=== PATIENT | male | born 1940 | race Caucasian/White ===

== ENCOUNTER → 2016-09-12 | Outpatient (CLI) | payer OTHER ==
[2016-09-12 18:19] LABS: ALT/SGPT 37 U/L (12-78); BLOOD UREA NITROGEN 25 mg/dl (7-18); BUN/CREATININE RATIO 19.5 (10-20); CALCIUM 8.8 mg/dl (8.5-10.1); CARBON DIOXIDE 28 mmol/L (21-32); CHLORIDE 105 mmol/L (98-107); GLUCOSE 96 mg/dl (70-99); POTASSIUM 4.5 mmol/L (3.5-5.1); SODIUM 139 mmol/L (136-145)
[2016-09-12 18:30] LABS: ALB/GLOB RATIO 1.1 (0.9-2); ALKALINE PHOSPHATASE 45 U/L (45-117); AST/SGOT 21 U/L (15-37)
[2016-09-12 18:46] LABS: MEAN CELL VOLUME 100.5 fL (80-100); MEAN CORPUSCULAR HEMOGLOBIN 33.3 pg (25-34); MEAN CORPUSCULAR HGB CONC 33.2 g/dl (32-36); MEAN PLATELET VOLUME 12.4 fL (7.4-10.4); PLATELET COUNT 107 K/uL (130-400); RED BLOOD COUNT 3.78 M/uL (4.7-6.1); WHITE BLOOD COUNT 5.99 K/uL (4.8-10.8)
[2016-09-12 18:47] LABS: COMPLETE YES; EOS % 0.2 %; IG% 0.2 %; LYMPH % 23.4 %; MONO % 37.4 %; NEUT % 38.8 %; PLT ESTIMATE DECREASED
--- NOTE | 2016-09-25 12:09 | CODING QUERY MEDICAL NECESSITY ---
SUPPORTING DIAGNOSIS NEEDED Niranjan DAMION, A supporting diagnosis is required for the test/procedure performed on this patient in order for us to be reimbursed by the patient's insurance. Please provide a supporting diagnosis for the following test/procedure listed below next to the test name along with your signature. *If there is no additional diagnosis for this patient that would support the following test/procedure please document that below next to the test/procedure. Test(s)/Procedure(s) that require a supporting diagnosis: * ([id number]) VITAMIN D ASSAY DIAGNOSIS: DATE OF SERVICE: 09/12/16 Provider Signature: Date: Thank you Flako Sousa [facility] Information Management Once completed, please kindly fax back to [phone] For questions please call [phone]
== END | disposition home or self-care (01) ==
LOC: C.LABPBG 15:01
PROVIDERS: ATTEND Physician Assistant
DX: Z00.00 Encounter for general adult medical examination without abnormal findings (principal); Z13.21 Encounter for screening for nutritional disorder; R42 Dizziness and giddiness

== ENCOUNTER → 2016-09-12 | Outpatient (CLI) | payer OTHER ==
[2016-09-12 18:15] LABS: URINE APPEARANCE CLEAR (CLEAR); URINE BILIRUBIN NEG (NEG); URINE COLOR YELLOW; URINE NITRITE NEG (NEG); URINE PH 5.5 (4.5-7.5); URINE SPECIFIC GRAVITY 1.019 (1.000-1.030); UROBILINOGEN NEG (NEG); ZZUR CULT IF INDIC CLEAN CATCH NO
[2016-09-12 18:21] LABS: MANUAL MICROSCOPIC REQUIRED? NO; REVIEW REQ? NO
== END | disposition home or self-care (01) ==
LOC: C.LABSPEC 14:41
PROVIDERS: ATTEND Physician Assistant
DX: R42 Dizziness and giddiness (principal)

== ENCOUNTER 2016-09-28 12:29 | Emergency (ER) | payer OTHER ==
[~2016-09-28] VITALS: Ht 172.7 cm; Wt 46.4 kg
[2016-09-28 12:58] VITALS: TEMP 36.5; Ht 172.7 cm; Wt 46.4 kg
[2016-09-28 13:11] VITALS: O2SAT 93
[2016-09-28] MEDS ORDERED: SODIUM CHLORIDE 0.9% 1000ML 500 ML IV STA (13:13)
[2016-09-28] MEDS ORDERED: SODIUM CHLORIDE 0.9% 1000ML 1,000 ML IV STA (13:13)
--- NOTE | 2016-09-28 13:17 | EMERGENCY ROOM VISIT NOTE ---
History Report prepared by Celi: Susy Gooden Under the Supervision of: Dr. Jan Hardy M.D. First contact with patient: 13:05 Chief Complaint: OVERDOSE (ACCIDENTAL) Stated Complaint: VERTIGO/ MED INTAKE NOT PRESCIBED Nursing Triage Summary: Per EMS patient has been having an increase in confusion over the past few weeks. This morning patient feel two different times when getting up from sitting. Patient denies any LOC with falls. Denies hitting his heat. Patient accidently took his 's medication this morning at around 1000. Patient took Paxil 20mg, Iron Sulfate (unknown dose) and Metformin 1000mg. Patient c/o dizziness when standing for EMS. EMS also reported patient became orthostatic when standing. Patient BSG for EMS was 122. Patient denies any pain or dizziness at this time. History of Present Illness The patient is a 76 year old male who presents to the Emergency Room with complaints of persistent dizziness that began prior to arrival. Per nursing notes, the patient accidentally took 1000 mg of Metformin, 20 mg of Paxil, and an iron tablet. Nursing notes report that the patient was found to have a blood glucose of 172 mg/dL and has been complaining of dizziness. The patient' s states that the dizziness has been ongoing prior to the medication intake. She notes that the patient fell twice this morning. The patient denies any head injury or other injury due to the fall. He states that his dizziness is worsened with standing. The patient denies being on any anti- coagulants. The patient denies any fever, chest pain, shortness of breath, vomiting, or diarrhea. Source of History: patient Onset: prior to arrival Position: other (global) Quality: other (dizziness) Timing: other (persistent) Modifying Factors (Worsening): other (standing) Associated Symptoms: No fevers, No chest pain, No SOB, No vomiting, No diarrhea Review of Systems See HPI for pertinent positives & negatives. A total of 10 systems reviewed and were otherwise negative. Past Medical & Surgical No active medical problems stated Family History Heart disease Lung disease Social History Smoking Status: Never Smoker Smokeless Tobacco Use: Yes Alcohol Use: none Marital Status: Housing Status: lives with family Occupation Status: retired Current/Historical Medications No Active Prescriptions or Reported Meds Allergies Coded Allergies: No Known Allergies (Unverified , 09/28/16) Physical Exam Vital Signs Date Time Temp Pulse Resp B/P (MAP) Pulse Ox O2 Delivery O2 Flow Rate FiO2 09/28/16 14:49 71 117/73 98 Room Air 09/28/16 13:40 72 20 118/71 72 114/70 87 127/92 09/28/16 13:12 78 20 120/71 99 Room Air 09/28/16 13:11 93 Room Air 09/28/16 12:58 36.5 76 119/71 98 Room Air 09/28/16 12:51 72 Physical Exam GENERAL: Patient is in no acute distress. HEENT: No acute trauma, normocephalic atraumatic, mucous membranes dry, no nasal congestion, no scleral icterus. NECK: No stridor, no adenopathy, no meningismus, trachea is midline. LUNGS: Clear to auscultation bilaterally, no wheeze, no rhonchi, breath sounds equal. HEART: Without murmurs gallops or rubs, regular rate and rhythm. ABDOMEN: Soft, nontender, bowel sounds positive, no hernias, no peritonitis. EXTREMITIES: No cyanosis or edema, full range of motion of all the joints without pain or difficulty, no signs for acute trauma. NEUROLOGIC: Oriented x 3, no acute motor or sensory deficits, no focal weakness. SKIN: No rash, no jaundice, no diaphoresis. Medical Decision & Procedures ER Provider Diagnostic Interpretation: Orthostatic vital signs are currently negative. Radiology results as stated below per my review and radiologist interpretation: CHEST ONE VIEW PORTABLE CLINICAL HISTORY: Altered mental status. Weakness. COMPARISON STUDY: None available at time of interpretation due to PACS downtime. FINDINGS: Note is made of asymmetric right apical opacity. There is no pneumothorax or pleural effusion. There is no evidence of pulmonary edema. Cardiomediastinal silhouette is normal. Apparent retrocardiac opacity is probably artifactual. IMPRESSION: Asymmetric right apical opacity. This is nonspecific and prior imaging studies are not available for comparison due to PACS downtime. Therefore, this could reflect scarring, pneumonia or neoplastic process. Correlation with prior imaging studies would available, is recommended. In the absence of prior studies, short-term follow-up PA and lateral chest radiographs are recommended in one month. Electronically signed by: Abelardo Cruz M.D. 09/28/2016 2:08 PM Dictated Date/Time: 09/28/2016 2:[address] SCAN OF THE BRAIN WITHOUT IV CONTRAST CLINICAL HISTORY: Weakness. Change in mental status. COMPARISON STUDY: No prior studies are available for comparison at the time of dictation. TECHNIQUE: Unenhanced axial CT scan of the brain is performed from the vertex to the skull base. CT DOSE: 614.27 mGy.cm FINDINGS: Brain parenchyma: There are age-related involutional changes noting mild subcortical and periventricular microangiopathic change. There is no hemorrhage, mass effect, or evidence of acute territorial ischemia by CT criteria. Ceja-white matter is preserved. No extra-axial fluid collection is seen. Ventricles, sulci, cisterns: Prominent secondary to involutional change. Intracranial vasculature: There is atherosclerotic calcification of the cavernous carotid and vertebral arteries. Calvarium: Unremarkable. Sinuses and mastoids: The visualized paranasal sinuses are clear. The mastoid air cells are well pneumatized. Orbits: The bony orbits are grossly intact. IMPRESSION: There is no hemorrhage, mass effect, or evidence of acute territorial ischemia by CT criteria. Electronically signed by: Jan Saucedo M.D. 09/28/2016 2:10 PM Dictated Date/Time: 09/28/2016 2:06 PM Laboratory Results 09/28/16 13:30 Red Blood Count 3.93, Mean Corpuscular Volume 98.2, Mean Corpuscular Hemoglobin 32.6, Mean Corpuscular Hemoglobin Concent 33.2, Mean Platelet Volume 11.6, Neutrophils (%) (Auto) 67.8, Lymphocytes (%) (Auto) 23.9, Monocytes (%) (Auto) 8.0, Eosinophils (%) (Auto) 0.0, Basophils (%) (Auto) 0.1, Neutrophils # (Auto) 6.34, Lymphocytes # (Auto) 2.24, Monocytes # (Auto) 0.75, Eosinophils # (Auto) 0.00, Basophils # (Auto) 0.01 09/28/16 13:30 Test 09/28/16 13:30 09/28/16 14:45 White Blood Count 9.36 K/uL (4.8-10.8) Red Blood Count 3.93 M/uL (4.7-6.1) Hemoglobin 12.8 g/dL (14.0-18.0) Hematocrit 38.6 % (42-52) Mean Corpuscular Volume 98.2 fL (80-100) Mean Corpuscular Hemoglobin 32.6 pg (25-34) Mean Corpuscular Hemoglobin Concent 33.2 g/dl (32-36) Platelet Count 123 K/uL (130-400) Mean Platelet Volume 11.6 fL (7.4-10.4) Neutrophils (%) (Auto) 67.8 % Lymphocytes (%) (Auto) 23.9 % Monocytes (%) (Auto) 8.0 % Eosinophils (%) (Auto) 0.0 % Basophils (%) (Auto) 0.1 % Neutrophils # (Auto) 6.34 K/uL (1.4-6.5) Lymphocytes # (Auto) 2.24 K/uL (1.2-3.4) Monocytes # (Auto) 0.75 K/uL (0.11-0.59) Eosinophils # (Auto) 0.00 K/uL (0-0.5) Basophils # (Auto) 0.01 K/uL (0-0.2) RDW Standard Deviation 47.8 fL (36.4-46.3) RDW Coefficient of Variation 13.2 % (11.5-14.5) Immature Granulocyte % (Auto) 0.2 % Immature Granulocyte # (Auto) 0.02 K/uL (0.00-0.02) Anion Gap 6.0 mmol/L (3-11) Est Creatinine Clear Calc Drug Dose 30.7 ml/min Estimated GFR () 60.6 Estimated GFR (Non- 52.3 BUN/Creatinine Ratio 16.6 (10-20) Calcium Level 8.5 mg/dl (8.5-10.1) Total Bilirubin 0.9 mg/dl (0.2-1) Aspartate Amino Transf (AST/SGOT) 22 U/L (15-37) Alanine Aminotransferase (ALT/SGPT) 27 U/L (12-78) Alkaline Phosphatase 52 U/L (45-117) Total Creatine Kinase 109 U/L (39-308) Troponin I < 0.015 ng/ml (0-0.045) Total Protein 7.5 gm/dl (6.4-8.2) Albumin 4.1 gm/dl (3.4-5.0) Globulin 3.4 gm/dl (2.5-4.0) Albumin/Globulin Ratio 1.2 (0.9-2) Thyroid Stimulating Hormone (TSH) 1.700 uIu/ml (0.300-4.500) Urine Color YELLOW Urine Appearance CLEAR (CLEAR) Urine pH 7.0 (4.5-7.5) Urine Specific [place] 1.013 (1.000-1.030) Urine Protein NEG (NEG) Urine Glucose (UA) NEG (NEG) Urine Ketones NEG (NEG) Urine Occult Blood NEG (NEG) Urine Nitrite NEG (NEG) Urine Bilirubin NEG (NEG) Urine Urobilinogen NEG (NEG) Urine Leukocyte Esterase NEG (NEG) Laboratory results reviewed by me. Medications Administered Medications (Trade) Dose Ordered Sig/Carole Route Start Time Stop Time Status Last Admin Dose Admin Sodium Chloride 500 ml @ 999 mls/hr Q31M STAT IV 09/28/16 13:13 09/28/16 13:43 DC 09/28/16 13:48 999 MLS/HR Sodium Chloride 1,000 ml @ 200 mls/hr Q5H STAT IV 09/28/16 13:13 09/28/16 18:12 09/28/16 14:58 200 MLS/HR Sodium Chloride 500 ml @ 999 mls/hr Q31M STAT IV 09/28/16 14:24 09/28/16 14:54 DC 09/28/16 14:58 999 MLS/HR ECG Indication: toxicologic Rate (beats per minute): 71 Rhythm: normal sinus Findings: no acute ischemic change, no ectopy ED Course 1307: The patient was evaluated in room A9B. A complete history and physical exam was performed. 1313: Ordered Sodium Chloride 1000 ml @ 200 mls/hr IV, Sodium Chloride 500 ml @ 999 mls/hr IV. 1424: Ordered Sodium Chloride 500 ml @ 999 mls/hr IV. Medical Decision The patient is a 76 year old male who presents to the ED with complaints of dizziness. Differential diagnoses considered include Dehydration, medication reaction, anemia, electrolyte imbalance, intracranial bleeding, UTI, infection, anemia, CA, thyroid disorder. There is no leukocytosis or concerning anemia. No significant electrolyte abnormality, kidney failure or hepatitis. The patient appears to be in a euthyroid state. EKG shows a normal sinus rhythm, no acute ischemia. Cardiac enzyme testing times one is not consistent with acute cardiac injury. Chest x- ray shows a finding in the right upper lung. I was able to compare to old films , this finding does not appear to be acute. There is no CHF. The patient was encouraged to follow with his doctor's office for a repeat chest film to ensure stabilization of the findings. Urinalysis does not show infection. Brain CT shows no acute bleed or mass effect. On exam, there are no focal neurologic deficits. The patient is not febrile or toxic. Orthostatic vital signs are negative. The patient received IV saline. He is currently resting comfortable. The patient is being seen by case management for the possibility of rehabilitation. He may benefit from strengthening. At this point, the cause for the dizziness is likely dehydration. The fact that he took the wrong medications today may have been a continuing factor. He does seem back to baseline . There has been ongoing weakness though for some time, as per his , and again, he is being assessed for possible rehabilitation. The case is being assumed by , please see her notes for the final disposition and plan. Medication Reconcilliation Current Medication List: was personally reviewed by me Blood Pressure Screening Patient's blood pressure: Normal blood pressure Blood pressure disposition: Did not require urgent referral Impression Primary Impression: Dizziness Additional Impression: Accidental drug ingestion Scribe Attestation The scribe's documentation has been prepared under my direction and personally reviewed by me in its entirety. I confirm that the note above accurately reflects all work, treatment, procedures, and medical decision making performed by me. Departure Information Dispostion Still a Patient Prescriptions No Active Prescriptions or Reported Meds Referrals David Hernandez D.O. (PCP) Patient Instructions My [facility] Problem Qualifiers
[2016-09-28 13:46] LABS: HEMATOCRIT 38.6 % (42-52); MEAN CELL VOLUME 98.2 fL (80-100); MEAN CORPUSCULAR HEMOGLOBIN 32.6 pg (25-34); MEAN CORPUSCULAR HGB CONC 33.2 g/dl (32-36); MEAN PLATELET VOLUME 11.6 fL (7.4-10.4); PLATELET COUNT 123 K/uL (130-400); RED BLOOD COUNT 3.93 M/uL (4.7-6.1); WHITE BLOOD COUNT 9.36 K/uL (4.8-10.8)
[2016-09-28 14:07] LABS: ALT/SGPT 27 U/L (12-78); BLOOD UREA NITROGEN 22 mg/dl (7-18); BUN/CREATININE RATIO 16.6 (10-20); CALCIUM 8.5 mg/dl (8.5-10.1); CARBON DIOXIDE 27 mmol/L (21-32); CHLORIDE 104 mmol/L (98-107); GLUCOSE 114 mg/dl (70-99); POTASSIUM 4.8 mmol/L (3.5-5.1); SODIUM 137 mmol/L (136-145)
--- NOTE | 2016-09-28 14:10 | DIAGNOSTIC IMAGING REPORT ---
CHEST ONE VIEW PORTABLE CLINICAL HISTORY: Altered mental status. Weakness. COMPARISON STUDY: None available at time of interpretation due to PACS downtime. FINDINGS: Note is made of asymmetric right apical opacity. There is no pneumothorax or pleural effusion. There is no evidence of pulmonary edema. Cardiomediastinal silhouette is normal. Apparent retrocardiac opacity is probably artifactual. IMPRESSION: Asymmetric right apical opacity. This is nonspecific and prior imaging studies are not available for comparison due to PACS downtime. Therefore, this could reflect scarring, pneumonia or neoplastic process. Correlation with prior imaging studies would available, is recommended. In the absence of prior studies, short-term follow-up PA and lateral chest radiographs are recommended in one month. Electronically signed by: Abelardo Cruz M.D. 09/28/2016 2:08 PM Dictated Date/Time: 09/28/2016 2:02 PM
[2016-09-28 14:17] LABS: ALB/GLOB RATIO 1.2 (0.9-2); ALKALINE PHOSPHATASE 52 U/L (45-117); AST/SGOT 22 U/L (15-37)
[2016-09-28] MEDS ORDERED: SODIUM CHLORIDE 0.9% 500ML 500 ML IV STA (14:24)
--- NOTE | 2016-09-28 14:33 | DIAGNOSTIC IMAGING REPORT ---
CT SCAN OF THE BRAIN WITHOUT IV CONTRAST CLINICAL HISTORY: Weakness. Change in mental status. COMPARISON STUDY: No prior studies are available for comparison at the time of dictation. TECHNIQUE: Unenhanced axial CT scan of the brain is performed from the vertex to the skull base. CT DOSE: 614.27 mGy.cm FINDINGS: Brain parenchyma: There are age-related involutional changes noting mild subcortical and periventricular microangiopathic change. There is no hemorrhage, mass effect, or evidence of acute territorial ischemia by CT criteria. Ceja-white matter is preserved. No extra-axial fluid collection is seen. Ventricles, sulci, cisterns: Prominent secondary to involutional change. Intracranial vasculature: There is atherosclerotic calcification of the cavernous carotid and vertebral arteries. Calvarium: Unremarkable. Sinuses and mastoids: The visualized paranasal sinuses are clear. The mastoid air cells are well pneumatized. Orbits: The bony orbits are grossly intact. IMPRESSION: There is no hemorrhage, mass effect, or evidence of acute territorial ischemia by CT criteria. Electronically signed by: Jan Saucedo M.D. 09/28/2016 2:10 PM Dictated Date/Time: 09/28/2016 2:06 PM
[2016-09-28 14:42] LABS: BASO % 0.1 %; BASO ABS # 0.01 K/uL (0-0.2); COMPLETE YES; IG% 0.2 %; LYMPH % 23.9 %; LYMPH ABS # 2.24 K/uL (1.2-3.4); NEUT % 67.8 %
[2016-09-28 15:37] LABS: URINE APPEARANCE CLEAR (CLEAR); URINE BILIRUBIN NEG (NEG); URINE COLOR YELLOW; URINE NITRITE NEG (NEG); URINE SPECIFIC GRAVITY 1.013 (1.000-1.030); UROBILINOGEN NEG (NEG); ZZURINE CULT IF INDIC CATH NO
[2016-09-28 15:40] LABS: MANUAL MICROSCOPIC REQUIRED? NO; REVIEW REQ? NO
[2016-09-28 17:24] VITALS: BP 116/66; PULSE 70; O2SAT 99
== END 2016-09-28 17:25 | disposition home or self-care (01) ==
LOC: EDBD 12:29 → C.EDA 12:31
DX: R42 Dizziness and giddiness (principal); E86.0 Dehydration; T43.221A Poisoning by selective serotonin reuptake inhibitors, accidental (unintentional), initial encounter; T45.4X1A Poisoning by iron and its compounds, accidental (unintentional), initial encounter; T38.3X1A Poisoning by insulin and oral hypoglycemic [antidiabetic] drugs, accidental (unintentional), initial encounter

== ENCOUNTER → 2016-10-18 | Outpatient (CLI) | payer OTHER ==
[~2016-10-18] MED LIST: GADAVIST IV PRN
--- NOTE | 2016-10-18 08:03 | DIAGNOSTIC IMAGING REPORT ---
ORBIT RADIOGRAPHS 3 VIEWS HISTORY: pre-MRI screening. COMPARISON: None. FINDINGS: There are no radiopaque foreign bodies identified within the orbits. IMPRESSION: No radiopaque foreign bodies identified within the orbits. Electronically signed by: Abdi Lipscomb M.D. 10/18/2016 8:01 AM Dictated Date/Time: 10/18/2016 8:01 AM
--- NOTE | 2016-10-18 09:14 | DIAGNOSTIC IMAGING REPORT ---
Brain MRI WITH AND WITHOUT CONTRAST HISTORY: R42 [id number] TECHNIQUE: Multiplanar multisequence MRI of the brain was performed both before and after the intravenous administration of contrast. COMPARISON STUDY: Head CT 09/28/2016. FINDINGS: There is no mass, hematoma, midline shift, or acute infarct. The paranasal sinuses are clear. The mastoid air cells are clear. The ventricles and sulci demonstrate mild age-related involutional changes. The major vascular flow voids at the skull base are well-maintained. No abnormal enhancement. IMPRESSION: No acute intracranial abnormality. Electronically signed by: Demond Reid M.D. 10/18/2016 9:13 AM Dictated Date/Time: 10/18/2016 9:07 AM
== END | disposition home or self-care (01) ==
LOC: C.MRI 07:15
PROVIDERS: ATTEND Physician Assistant Medical
DX: R42 Dizziness and giddiness (principal); R29.6 Repeated falls; R29.898 Other symptoms and signs involving the musculoskeletal system

== ENCOUNTER → 2017-04-30 | Outpatient (CLI) | payer OTHER ==
[2017-04-30 16:50] LABS: HEMATOCRIT 38.4 % (42-52); HEMOGLOBIN 12.7 g/dL (14.0-18.0); MEAN CELL VOLUME 99.2 fL (80-100); MEAN CORPUSCULAR HEMOGLOBIN 32.8 pg (25-34); MEAN CORPUSCULAR HGB CONC 33.1 g/dl (32-36); RED CELL DISTRIBUTION WIDTH CV 14.1 % (11.5-14.5); RED CELL DISTRIBUTION WIDTH SD 50.4 fL (36.4-46.3); WHITE BLOOD COUNT 8.51 K/uL (4.8-10.8)
[2017-04-30 17:11] LABS: BLOOD UREA NITROGEN 23 mg/dl (7-18); CALCIUM 9.1 mg/dl (8.5-10.1); CARBON DIOXIDE 33 mmol/L (21-32); CREATININE 1.34 mg/dl (0.60-1.40); GLUCOSE 94 mg/dl (70-99); POTASSIUM 3.2 mmol/L (3.5-5.1); SODIUM 138 mmol/L (136-145)
[2017-04-30 17:18] LABS: MEAN PLATELET VOLUME 12.1 fL (7.4-10.4); PLATELET COUNT 130 K/uL (130-400)
[2017-04-30 17:32] LABS: BASO % 0.1 %; BASO ABS # 0.01 K/uL (0-0.2); EOS % 0.1 %; EOS ABS # 0.01 K/uL (0-0.5); IG# 0.01 K/uL (0.00-0.02); LYMPH % 32.5 %; LYMPH ABS # 2.77 K/uL (1.2-3.4); MONO % 18.1 %; MONO ABS # 1.54 K/uL (0.11-0.59); NEUT % 49.1 %; NEUT ABS # 4.17 K/uL (1.4-6.5)
== END | disposition home or self-care (01) ==
LOC: C.LABPBG 15:22
PROVIDERS: ATTEND Family Medicine
DX: E55.9 Vitamin D deficiency, unspecified (principal); D53.9 Nutritional anemia, unspecified; G20 Parkinson's disease

== ENCOUNTER → 2017-05-11 | Outpatient (CLI) | payer OTHER ==
[2017-05-11 17:23] LABS: BLOOD UREA NITROGEN 27 mg/dl (7-18); CALCIUM 8.6 mg/dl (8.5-10.1); CARBON DIOXIDE 33 mmol/L (21-32); CREATININE 1.32 mg/dl (0.60-1.40); GLUCOSE 83 mg/dl (70-99); POTASSIUM 3.6 mmol/L (3.5-5.1); SODIUM 138 mmol/L (136-145)
== END | disposition home or self-care (01) ==
LOC: C.LABPBG 12:44
PROVIDERS: ATTEND Family Medicine
DX: E87.6 Hypokalemia (principal)

== ENCOUNTER 2019-06-03 18:26 | Inpatient (IN) ==
[2019-06-03] MEDS ORDERED: SODIUM CHLORIDE 0.9% 1000ML 1,000 ML IV SCH (18:45)
[2019-06-03 19:12] LABS: Basophils # (auto) 0.01 K/uL (0-0.2); Basophils % (auto) 0.2 %; Eosinophils # (auto) 0.02 K/uL (0-0.5); Eosinophils % (auto) 0.4 %; Hematocrit (blood only) 39.2 % (42-52); Immature Granulocytes # (auto) 0.01 K/uL (0.00-0.02); Immature Granulocytes % (auto) 0.2 %; Lymphocytes # (auto) 1.23 K/uL (1.2-3.4); Lymphocytes % (auto) 23.6 %; Mean Corpuscular Hemoglobin 32.3 pg (25-34); Mean Corpuscular Hgb Conc 30.6 g/dL (32-36); Mean Corpuscular Volume 105.7 fL (80-100); Mean Platelet Volume 12.2 fL (7.4-10.4); Monocytes # (auto) 2.18 K/uL (0.11-0.59); Monocytes % (auto) 41.8 %; Neutrophils # (auto) 1.76 K/uL (1.4-6.5); Neutrophils % (auto) 33.8 %; Platelet Count 218 K/uL (130-400); RDW Coefficient of Variation 14.6 % (11.5-14.5); RDW Standard Deviation 56.3 fL (36.4-46.3); Red Blood Count 3.71 M/uL (4.7-6.1); White Blood Count 5.21 K/uL (4.8-10.8)
--- NOTE | 2019-06-03 19:23 | XRay Report ---
XR chest 1V portable CLINICAL HISTORY: weakness dyspnea COMPARISON STUDY: 09/28/2016 FINDINGS: Chronic apical parenchymal and pleural scarring. Mild emphysematous change. No focal infilt rate. Diaphragms are smooth. IMPRESSION: No acute process. Chronic changes as noted. ACT 112: Negative or not required by law. The above report was generated using voice recognition software. It may contain grammatical, syntax or spelling errors. Electronically signed by: Fawad Viera M.D. 06/03/2019 7:22 PM
[2019-06-03 19:34] LABS: Alanine Aminotransferase 32 U/L (12-78); Albumin Level 3.3 gm/dl (3.4-5.0); Aspartate Aminotransferase 25 U/L (15-37); BUN Creatinine Ratio 17.4 (10-20); Blood Urea Nitrogen 27 mg/dl (7-18); Calcium 8.8 mg/dl (8.5-10.1); Carbon Dioxide 30 mmol/L (21-32); Chloride 122 mmol/L (98-107); Creatinine Clr Calc Pharmacy 26.8 ml/min; Est GFR (African American) 47.2; Est GFR (Non-African American) 40.7; Glucose 92 mg/dl (70-99); Magnesium 2.5 mg/dl (1.8-2.4); Potassium 3.6 mmol/L (3.5-5.1); Sodium 157 mmol/L (136-145)
[2019-06-03 19:37] LABS: Appearance Urine Clear (Clear); Bacteria Urine Automated Negative (Negative); Bilirubin Urine Negative (Negative); Blood Urine 2+ (Negative); Color Urine Dark Yellow; Glucose Urine UA Negative (Negative); Ketones Urine Trace (Negative); Leukocyte Esterase Urine 1+ (Negative); Nitrite Urine Negative (Negative); Protein Urine 3+ (Negative); Urobilinogen Urine Negative (Negative)
[2019-06-03 19:41] LABS: Albumin Globulin Ratio 0.8 (0.9-2); Alkaline Phosphatase 92 U/L (45-117); Bilirubin,Total 0.5 mg/dl (0.2-1); Globulin 4.1 gm/dl (2.5-4.0); Total Protein 7.4 gm/dl (6.4-8.2); Troponin I < 0.015 ng/ml (0-0.045)
--- NOTE | 2019-06-03 20:00 | CT Scan Report ---
CT head/brain wo con CT DOSE: 1459.56 mGycm HISTORY: Metal status change AMS TECHNIQUE: Multiaxial CT images of the head were performed without the use of intravenous contrast. A dose lowering technique was utilized adhering to the principles of ALARA. Comparison: None. Findings: The paranasal sinuses and mastoid air cells are clear. The calvarium and skull base are int act. The ventricles and sulci are within normal limits. There is no mass, hematoma, midline shift, or acute infarct. Impression: No acute intracranial abnormality. ACT 112: Negative or not required by law. The above report was generated using voice recognition software. It may contain grammatical, syntax or spelling errors. Electronically signed by: Fawad Viera M.D. 06/03/2019 7:58 PM
--- NOTE | 2019-06-03 20:03 | CT Scan Report ---
CT abd pelvis wo con CT DOSE: 316.90 mGycm HISTORY: Pain abd pain, dementia, CKD TECHNIQUE: Multiaxial CT images of the abdomen and pelvis were performed without contrast. A dose lo wering technique was utilized adhering to the principles of ALARA. COMPARISON STUDY: None. FINDINGS: The lung bases are clear. The unenhanced liver, spleen, gallbladder, pancreas, kidneys, and adrenal glands are within normal limits. No bowel wall thickening or obstruction. The pelvic organs are unremarkable. No suspicious lytic or blastic osseous lesions. De Paz catheter and air bubbles with in the bladder. Radioactive seeds within the prostatic bed on a postprocedural basis. IMPRESSION: No significant abnormality identified within the abdomen or pelvis. ACT 112: Negative or not required by law. The above report was generated using voice recognition software. It may contain grammatical, syntax or spelling errors. Electronically signed by: Fawad Viera M.D. 06/03/2019 8:01 PM
--- NOTE | 2019-06-03 20:18 | Emergency Department Note ---
Impression & Plan Acute hypernatremia, Dementia ED Provider Note NAME: ДМИТРИЙ JANG AGE: 79 SEX: M ARRIVES VIA: Ambulance INFORMANT: EMS ED PROVIDER(S): Noah Arroyo MD CHIEF COMPLAINT: Abnormal labs PLAN: Disposition: Admitted Condition: [Good] MEDICAL DECISION MAKING: Patient presented from [facility] due to worsening hypernatremia. The patient was treated with IV fluids as an outpatient and his labs are still abnormal. He was sent to the ER for further management. Blood work and imaging were performed. Head CT and abdominal CT were negative. Chest x-ray negative for acute process. The patient has no sign of UTI. His blood work does reveal hypernatremia. He was gently hydrated. Internal medicine was consulted for further management. Triage Nursing notes reviewed and agree them. [Prior medical records reviewed] outpatient sodium measurement from May 27 was 148, June 01 was 157 and June 02 was 160. Vital Signs: reviewed and remarkable for hypertension Differential diagnosis: Infection, dehydration, metabolic abnormality, hypo/hyperglycemia, electrolyte disturbance, anemia, hypoxia, cardiac sources, intracerebral event, toxicologic, neurologic, as well as other pathologies. ER treatment provided: Normal saline hydration Diagnostics interpreted by me: ECG: Rate: 71 Rhythm: Normal sinus rhythm [place]: Normal QRS: Normal ST segements: No ST elevation or depression Other: Prolonged QT Cardiac Monitoring: Cardiac monitoring ordered by me: The patient was placed on continuous cardiac monitoring and observed. It revealed a normal sinus rhythm at 73 beats per minute without ectopy or evidence of dysrhythmia. Laboratory studies: [See below] unremarkable CBC. Chemistry panel revealed hyponatremia. Creatinine was minimally elevated at 1.5. Patient's baseline is around 1.2-1.3. Imaging studies: Imaging studies: Chest x-ray. Findings: A chest x-ray was performed and revealed no pneumothorax, effusion, infiltrate, pulmonary edema, free air under the diaphragm, or wide mediastinum. Impression: No acute disease. Head CT: A noncontrast CT scan of the head was performed and was negative for tumor, fracture, intracranial hemorrhage, or other acute pathology. Abdominal CT: Noncontrast CT scan of the abdomen pelvis was performed and was negative for acute pathology. I refer you to the EMR for further imaging results. Consultation(s): Not any physician group, Dr. Ady Dasilva. Case discussed. He will admit the patient for further management. HPI: The patient is a 79 year old male who presents to the Emergency Room with abnormal labs. This started over the last several days and is worsening. Patient has a history of dementia history is limited. Patient was treated with 2 L of IV fluids at his nursing facility. Labs were worsening. Sodium went from 148-160. He was sent to the ER for further treatment. ROS: Unobtainable secondary to dementia with altered mental status PAST MEDICAL HISTORY:[See Below] dementia PAST SURGICAL HISTORY:[See Below] FAMILY HISTORY:[See Below] SOCIAL HISTORY:[See Below] resides in a nursing care facility. HOME MEDICATIONS:[See Below] ALLERGIES:[See Below] VITALS:[See Below] PHYSICAL EXAMINATION: GENERAL: Awake, tired -appearing, in no distress HENT: Normocephalic, atraumatic. Oropharynx unremarkable. EYES: Normal conjunctiva. Sclera non-icteric. NECK: Inspection normal. Non-tender. Supple. No nuchal rigidity. FROM. No masses. RESPIRATORY: Clear to auscultation. No wheezes. No rales. Normal respiratory effort. CARDIAC: Normal rate. Normal rhythm. No murmurs. No rubs. Extremities warm and well perfused. Pulses equal. No JVD. GI: Soft, non-distended. Possibly some mild diffuse tenderness to palpation. Exam difficult secondary to patient's dementia and mental status. No rebound or guarding. No masses. : De Paz catheter in place. MUSCULOSKELETAL: Atraumatic. Chest examination reveals no tenderness. The back is symmetrical on inspection without obvious abnormality. There is no CVA tenderness to palpation. No joint edema. LOWER EXTREMITIES: Calves are equal size bilaterally and non-tender. No edema. No discoloration. Muscular atrophy present. NEURO: Demented sensorium. Moving arms and legs. Following commands. SKIN: No rash or jaundice noted. ED COURSE: [Critical Care:] [None] Noah Arroyo MD Past Med/Surg History Social History Visual Impairment: Limited Hearing Ability: Hard of Hearing marital status: Current Living Situation: Spouse current occupational status: retired Smoking Status: Unknown if ever smoked Hx Alcohol Use: Yes Alcohol Intake Frequency: Rarely Hx Substance Use: No Dental Care, Regularly: Yes Physical Activity Frequency: Does not Exercise Allergies Allergies Allergy/AdvReac Type Severity Reaction Status Date / Time No Known Allergies Allergy Verified 06/03/19 19:20 Home Meds Home Medications Medication Instructions Recorded Confirmed acetaminophen [Tylenol] 650 mg PO Q4H PRN MDD 3000 MG 06/03/19 06/03/19 APAP/24 HOURS bisacodyl [Dulcolax (bisacodyl)] 10 mg IA DAILY PRN 06/03/19 06/03/19 magnesium hydroxide [Milk of 30 ml PO DAILY PRN 06/03/19 06/03/19 Magnesia] sodium phosphates [Fleet Enema] 118 ml [place] DAILY PRN 06/03/19 06/03/19 Previous Rx's Medication Instructions Recorded donepezil 10 mg tablet 10 mg PO HS 30 Days #30 tab 12/09/18 amantadine HCl 100 mg capsule 100 mg PO BID #60 cap 05/12/19 Results & Data (ED) Vital Signs Vital Signs - 24 hr 06/03/19 18:32 06/03/19 18:36 06/03/19 18:40 Temperature Temperature Source Pulse Rate 73 72 72 Pulse Rate from SpO2 Sensor 73 72 74 Respiratory Rate 20 22 17 Respiratory Effort / Characteristics Respiratory Depth Blood Pressure 119/77 Blood Pressure Mean 87 Pulse Oximetry 96 97 98 Oxygen Delivery Method Room Air Room Air Room Air Sepsis Recent Fever Within 48 Hours Sepsis Action Taken by Nursing 06/03/19 18:44 06/03/19 18:50 06/03/19 19:00 Temperature 37.1 C Temperature Source Oral Pulse Rate 71 71 Pulse Rate from SpO2 Sensor 71 72 Respiratory Rate 17 15 21 Respiratory Effort / Characteristics Non-Labored Respiratory Depth Normal Blood Pressure 119/77 Blood Pressure Mean 91 Pulse Oximetry 96 96 95 Oxygen Delivery Method Room Air Room Air Room Air Sepsis Recent Fever Within 48 Hours No Sepsis Action Taken by Nursing No Action Required 06/03/19 19:10 06/03/19 19:19 06/03/19 19:21 Temperature Temperature Source Pulse Rate 77 71 70 Pulse Rate from SpO2 Sensor 70 69 Respiratory Rate 18 18 Respiratory Effort / Characteristics Respiratory Depth Blood Pressure 142/85 H Blood Pressure Mean 102 Pulse Oximetry 96 95 Oxygen Delivery Method Room Air Room Air Room Air Sepsis Recent Fever Within 48 Hours Sepsis Action Taken by Nursing 06/03/19 19:30 06/03/19 19:59 06/03/19 20:00 Temperature Temperature Source Pulse Rate 70 71 Pulse Rate from SpO2 Sensor 71 Respiratory Rate 17 22 18 Respiratory Effort / Characteristics Respiratory Depth Blood Pressure 167/100 H Blood Pressure Mean 125 Pulse Oximetry 100 Oxygen Delivery Method Sepsis Recent Fever Within 48 Hours Sepsis Action Taken by Nursing 06/03/19 20:15 06/03/19 20:30 06/03/19 20:45 Temperature Temperature Source Pulse Rate 71 69 68 Pulse Rate from SpO2 Sensor Respiratory Rate 13 13 14 Respiratory Effort / Characteristics Respiratory Depth Blood Pressure Blood Pressure Mean Pulse Oximetry Oxygen Delivery Method Sepsis Recent Fever Within 48 Hours Sepsis Action Taken by Nursing 06/03/19 21:00 06/03/19 21:15 06/03/19 21:30 Temperature Temperature Source Pulse Rate 69 69 68 Pulse Rate from SpO2 Sensor Respiratory Rate 17 14 22 Respiratory Effort / Characteristics Respiratory Depth Blood Pressure 142/85 H Blood Pressure Mean 103 Pulse Oximetry Oxygen Delivery Method Sepsis Recent Fever Within 48 Hours Sepsis Action Taken by Nursing 06/03/19 21:45 06/03/19 22:00 06/03/19 22:01 Temperature Temperature Source Pulse Rate 70 69 69 Pulse Rate from SpO2 Sensor Respiratory Rate 18 17 14 Respiratory Effort / Characteristics Respiratory Depth Blood Pressure 168/95 H Blood Pressure Mean 112 Pulse Oximetry Oxygen Delivery Method Sepsis Recent Fever Within 48 Hours Sepsis Action Taken by Nursing 06/03/19 22:15 Temperature Temperature Source Pulse Rate 70 Pulse Rate from SpO2 Sensor Respiratory Rate 15 Respiratory Effort / Characteristics Respiratory Depth Blood Pressure Blood Pressure Mean Pulse Oximetry Oxygen Delivery Method Sepsis Recent Fever Within 48 Hours Sepsis Action Taken by Nursing Laboratory Data Result diagrams: 06/03/19 19:00 06/03/19 23:49 Lab Results 06/03/19 06/03/19 06/03/19 Range/Units 19:00 19:00 19:02 WBC 5.21 (4.8-10.8) K/uL RBC 3.71 L (4.7-6.1) M/uL Hgb 12.0 L (14.0-18.0) g/dL Hct 39.2 L (42-52) % MCV 105.7 H (80-100) fL MCH 32.3 (25-34) pg MCHC 30.6 L (32-36) g/dL RDW Std Deviation 56.3 H (36.4-46.3) fL RDW Coeff of Marivel 14.6 H (11.5-14.5) % Plt Count 218 (130-400) K/uL MPV 12.2 H (7.4-10.4) fL Immature Gran % (Auto) 0.2 % Neut % (Auto) 33.8 % Lymph % (Auto) 23.6 % Otero % (Auto) 41.8 % Eos % (Auto) 0.4 % Baso % (Auto) 0.2 % Immature Gran # (Auto) 0.01 (0.00-0.02) K/uL Neut # (Auto) 1.76 (1.4-6.5) K/uL Lymph # (Auto) 1.23 (1.2-3.4) K/uL Otero # (Auto) 2.18 H (0.11-0.59) K/uL Eos # (Auto) 0.02 (0-0.5) K/uL Baso # (Auto) 0.01 (0-0.2) K/uL Sodium 157 H* (136-145) mmol/L Potassium 3.6 (3.5-5.1) mmol/L Chloride 122 H (98-107) mmol/L Carbon Dioxide 30 (21-32) mmol/L Anion Gap 5.0 (3-11) BUN 27 H (7-18) mg/dl Creatinine 1.57 H (0.6-1.4) mg/dl Est Cr Clr Drug Dosing 26.8 ml/min Est GFR ( Amer) 47.2 Est GFR (Non-Af Amer) 40.7 BUN/Creatinine Ratio 17.4 (10-20) Glucose 92 (70-99) mg/dl Osmolality 339 H (280-300) mOsm/kg Calcium 8.8 (8.5-10.1) mg/dl Magnesium 2.5 H (1.8-2.4) mg/dl Total Bilirubin 0.5 (0.2-1) mg/dl AST 25 (15-37) U/L ALT 32 (12-78) U/L Alkaline Phosphatase 92 (45-117) U/L Troponin I < 0.015 (0-0.045) ng/ml Total Protein 7.4 (6.4-8.2) gm/dl Albumin 3.3 L (3.4-5.0) gm/dl Globulin 4.1 H (2.5-4.0) gm/dl Albumin/Globulin Ratio 0.8 L (0.9-2) TSH 1.740 (0.300-4.500) uIu/ml Urine Color Urine Appearance (Clear) Urine pH (4.5-7.5) Ur Specific Marilla (1.000-1.030) Urine Protein (Negative) Urine Glucose (UA) (Negative) Urine Ketones (Negative) Urine Blood (Negative) Urine Nitrite (Negative) Urine Bilirubin (Negative) Urine Urobilinogen (Negative) Ur Leukocyte Esterase (Negative) Urine WBC (Auto) (0-5) /hpf Urine RBC (Auto) (0-4) /hpf U Hyaline Cast (Auto) (0-5) /lpf U Epithel Cells (Auto) (0-5) /lpf Urine Bacteria (Auto) (Negative) 06/03/19 Range/Units 19:20 WBC (4.8-10.8) K/uL RBC (4.7-6.1) M/uL Hgb (14.0-18.0) g/dL Hct (42-52) % MCV (80-100) fL MCH (25-34) pg MCHC (32-36) g/dL RDW Std Deviation (36.4-46.3) fL RDW Coeff of Marivel (11.5-14.5) % Plt Count (130-400) K/uL MPV (7.4-10.4) fL Immature Gran % (Auto) % Neut % (Auto) % Lymph % (Auto) % Otero % (Auto) % Eos % (Auto) % Baso % (Auto) % Immature Gran # (Auto) (0.00-0.02) K/uL Neut # (Auto) (1.4-6.5) K/uL Lymph # (Auto) (1.2-3.4) K/uL Otero # (Auto) (0.11-0.59) K/uL Eos # (Auto) (0-0.5) K/uL Baso # (Auto) (0-0.2) K/uL Sodium (136-145) mmol/L Potassium (3.5-5.1) mmol/L Chloride (98-107) mmol/L Carbon Dioxide (21-32) mmol/L Anion Gap (3-11) BUN (7-18) mg/dl Creatinine (0.6-1.4) mg/dl Est Cr Clr Drug Dosing ml/min Est GFR ( Amer) Est GFR (Non-Af Amer) BUN/Creatinine Ratio (10-20) Glucose (70-99) mg/dl Osmolality (280-300) mOsm/kg Calcium (8.5-10.1) mg/dl Magnesium (1.8-2.4) mg/dl Total Bilirubin (0.2-1) mg/dl AST (15-37) U/L ALT (12-78) U/L Alkaline Phosphatase (45-117) U/L Troponin I (0-0.045) ng/ml Total Protein (6.4-8.2) gm/dl Albumin (3.4-5.0) gm/dl Globulin (2.5-4.0) gm/dl Albumin/Globulin Ratio (0.9-2) TSH (0.300-4.500) uIu/ml Urine Color Dark Yellow Urine Appearance Clear (Clear) Urine pH 7.0 (4.5-7.5) Ur Specific Marilla 1.020 (1.000-1.030) Urine Protein 3+ H (Negative) Urine Glucose (UA) Negative (Negative) Urine Ketones Trace H (Negative) Urine Blood 2+ H (Negative) Urine Nitrite Negative (Negative) Urine Bilirubin Negative (Negative) Urine Urobilinogen Negative (Negative) Ur Leukocyte Esterase 1+ H (Negative) Urine WBC (Auto) 5-10 H (0-5) /hpf Urine RBC (Auto) 10-30 H (0-4) /hpf U Hyaline Cast (Auto) 1-5 (0-5) /lpf U Epithel Cells (Auto) 10-20 H (0-5) /lpf Urine Bacteria (Auto) Negative (Negative) Administered Medications Sodium Chloride (1/2 Nss) 1,000 mls @ 70 mls/hr IV .[id number] ANA Stop: 07/03/19 23:24 Last Admin: 06/04/19 00:23 Dose: 70 mls/hr Documented by: [id number] Discontinued Medications Sodium Chloride (Nss 1000ml) 1,000 mls @ 125 mls/hr IV .Q8H [facility] Stop: 06/04/19 02:44 Last Infusion: 06/03/19 23:30 Dose: 0 mls/hr Documented by: [id number] Admin: 06/03/19 19:29 Dose: 125 mls/hr Documented by: [id number] Discharge Plan Visit Data *Final* Discharge Date/Time: 06/03/19 23:00 Chief Complaint: Abnormal Labs/Diagnostic Testing Stated Complaint: ABNORMAL LABS ED Provider: Noah Arroyo Discharge Problem: Acute hypernatremia, Dementia Patient Disposition: Admitted As Inpatient Discharge Instructions Interventions: ED Discharge Assessment Last Done: 06/03/19 23:00
--- NOTE | 2019-06-03 21:48 | History & Physical Report ---
Date of Service June 03, 2019 Assessment & Plan (1) Acute hypernatremia: Mr. Ny is a 79yo M with a history of severe dementia with lewy body disease and anemia who presents from [facility] for acute hyponatremia which did not improve with 1 L of normal saline administration. Hypernatremia to 157 Unclear etiology, given progressing dementia and poor liquid intake per both family and [facility] suspect volume depletion hypernatremia but differential also includes central causes and DI Related free water deficit, half-normal saline at 79 cc/h should correct at about 0.5M EQ per hour, will decrease by 9 Half-normal saline 70 cc/h BMP every 4 hours, goal rate of change point 5M EQ per hour with no more than 12 M EQ per 24-hour Serum/urine osms pending for evaluation of central causes Parkinsonism with Lewy body disease dementia Patient acutely declining over the last 2 months, about 1 month ago was mostly nonverbal but was strong enough to walk with his family. Was recently transferred to [facility] after hospital admission for UTI and severe weakness Continue amantadine, donepezil Patient may benefit from a palliative consult. While 1 month ago he had decent functional status, and his current admission for volume depletion is unlikely to represent a life-threatening illness if his appetite does not improve or he is unable to tolerate adequate amounts of p.o. fluids he is likely to have repeat episodes of hypernatremia if no central causes identified. Family has not had a palliative planning discussion, but are open to this if volume depletion is the etiology of his presentation. DVT prophylaxis: Enoxaparin 30 Diet: Pured, nectar thick per [facility]. Speech consult to verify CODE STATUS: DNR/DNI. Confirmed with family. Disposition: Medical surgical (2) Dementia with Lewy bodies: (3) Weakness of both lower extremities: (4) Urinary retention: (5) Orthostatic hypotension: (6) Macrocytic anemia: (7) History of prostate cancer: (8) Hearing difficulty: (9) Parkinsons disease: (10) Palpitations: History of Present Illness Chief Complaint: Hyponatremia Primary Care Provider: Talisha Mcallister DO Patient history limited, patient nonverbal 2/2 severe dementia with Lewy body disease and does not give meaningful answers to questions. Per chart review patient is a resident of [facility] and was referred for worsening hypernatremia which did not respond to gentle IV hydration and was referred to the emergency department for further care. Evaluation in the emergency department showed hypernatremia to a sodium of 157, mildly elevated creatinine to 1.5 from a baseline of 1.3, mild hypoalbuminemia, and a CT head/chest x-ray/CT abdomen and pelvis which did not show any acute findings. CBC did not show sign of infection, no leukocytosis. On chart review from [facility] patient normally tolerates a nectar thick diet. Discussed with [facility] provider. He has only been a resident there since last week. He is nonverbal at baseline. He grabs hold on people and tracks eye movements. He was a transfer to [facility] from [facility] after being admitted for end stage Parkinsons disease. reportedly has a son Villa from [employer] [place] ([phone]), cell [phone]. Prior to admission had 1L of NSS at [facility] and has not been eating or drinking much in the preceding days. Collateral, Discussion with nikky Driver via phone: When he was staying at home he had decreased thirst drive for 2 years. Recently 2-3 weeks ago his oral intake decreased. He did not appear ill or have any symptoms, but had a decreased food and drink drive. No fevers, cough. He had a UTI 3 weeks ago which was treated at [facility] and which reportedly resolved by the time of discharge to [facility] for rehab. Their goals were to 'get him back on his feet so he could come home. Honestly I think his parkinsons has progressed to when I don't think he'll ever get back on his feet." His son reports that they have not discussed his case with palliative care before, but would be open to the discussion. His son would like to talk to his mother first, but thinks that discussion with pal liative service may be helpful during his admission. No other questions or concerns at time of phone call. 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 Son Villa is available at [phone] / [phone] Code Status: DNR/DNI Allergies Allergy/AdvReac Type Severity Reaction Status Date / Time No Known Allergies Allergy Verified 06/03/19 19:20 Home Medications Home Medications Medication Instructions Recorded Confirmed Type donepezil 10 mg tablet 10 mg PO HS 30 Days #30 tab 12/09/18 06/03/19 Rx amantadine HCl 100 mg capsule 100 mg PO BID #60 cap 05/12/19 06/03/19 Rx acetaminophen [Tylenol] 650 mg PO Q4H PRN MDD 3000 MG 06/03/19 06/03/19 History APAP/24 HOURS bisacodyl [Dulcolax (bisacodyl)] 10 mg [place] DAILY PRN 06/03/19 06/03/19 History magnesium hydroxide [Milk of 30 ml PO DAILY PRN 06/03/19 06/03/19 History Magnesia] sodium phosphates [Fleet Enema] 118 ml [place] DAILY PRN 06/03/19 06/03/19 History Past Med/Surg History Social History Preferred Language: Marshallese Communication Ability: Unable Visual Impairment: Limited Hearing Ability: Hard of Hearing Die Attaching Machine Tender Required: No Beliefs That Will Affect Care: None marital status: Current Living Situation: Rehab current occupational status: retired Other Information That Helps Us Care for You: No Smoking Status: Former smoker Second Hand Exposure: No ; Hx Alcohol Use: Yes Alcohol Intake Frequency: Rarely Hx Substance Use: No Dental Care, Regularly: Yes Physical Activity Frequency: Does not Exercise Review of Systems Review of Systems: Unobtainable due to cognitive status Physical Exam Physical Exam: General: NAD. Nonverbal. Does not follow commands. Occasionally tracks my movements. Withdraws to thumb nail pinch. HEENT: Atraumatic, normocephalic. Pupils equal and reactive to light and accommodation. Mucous membranes dry. Pulm: Exams diminished. Grossly clear. Symmetrical chest rise without increased work of breathing. No respiratory distress. Cardiac: RRR, -mrg. Radial pulses intact and symmetrical. Abdominal: Nontender, nondistended, soft. BS present. Extremities: No distal extremity swelling. Radial and PT pulses intact bilaterally and symmetrical. Results & Data Results & Data ([facility]) Vital Signs (Past 12 Hours) Vital Signs Temp Pulse Resp BP Pulse Ox 06/03/19 21:15 69 14 06/03/19 21:00 69 17 142/85 H 06/03/19 20:45 68 14 06/03/19 20:30 69 13 06/03/19 20:15 71 13 06/03/19 20:00 71 18 167/100 H 100 06/03/19 19:59 22 06/03/19 19:30 70 17 06/03/19 19:21 70 18 06/03/19 19:19 71 18 142/85 H 95 06/03/19 19:10 77 96 06/03/19 19:00 21 95 06/03/19 18:50 71 15 96 06/03/19 18:44 37.1 C 71 17 119/77 96 06/03/19 18:40 72 17 98 06/03/19 18:36 72 22 97 06/03/19 18:32 73 20 119/77 96 Supervising Physician Co-Signing Physician Notes Attending addendum: I have physically seen this patient, have supervised the medical residents activities, and agree with the H&P unless as otherwise noted. Assessment and Plan: Hypernatremia/dehydration/decreased oral intake- Replacing IV fluids per calculated free water deficit Serum and urine osmolality is added and pending at this time. Parkinsonism with Lewy body dementia- Likely contributing on a cognitive and possibly mechanical basis to oral intake decrease. Continue current regimen of amantadine and donepezil. Consult palliative care for ongoing direction. Recent urinary tract infection- Follow urine culture and sensitivity for clearance. Remainder orders and notations as noted. Resident Activity Tracking Resident Involvement: Resident Care Provided Care Provided: Adult Hospital Medicine
[2019-06-04] MEDS: SODIUM CHLORIDE 0.45 % 1,000 ML IV SCH ×2 (00:23→13:35)
[2019-06-04 00:25] LABS: BUN Creatinine Ratio 20.7 (10-20); Calcium 8.4 mg/dl (8.5-10.1); Creatinine Clr Calc Pharmacy 31.4 ml/min; Est GFR (African American) 57.2; Est GFR (Non-African American) 49.3; Potassium 3.6 mmol/L (3.5-5.1)
[2019-06-04 04:04] LABS: Basophils # (auto) 0.01 K/uL (0-0.2); Basophils % (auto) 0.2 %; Eosinophils # (auto) 0.02 K/uL (0-0.5); Eosinophils % (auto) 0.4 %; Hematocrit (blood only) 36.3 % (42-52); Hemoglobin 11.1 g/dL (14.0-18.0); Immature Granulocytes # (auto) 0.01 K/uL (0.00-0.02); Immature Granulocytes % (auto) 0.2 %; Lymphocytes # (auto) 1.49 K/uL (1.2-3.4); Mean Corpuscular Hemoglobin 32.2 pg (25-34); Mean Corpuscular Hgb Conc 30.6 g/dL (32-36); Mean Corpuscular Volume 105.2 fL (80-100); Mean Platelet Volume 12.1 fL (7.4-10.4); Monocytes # (auto) 2.25 K/uL (0.11-0.59); Monocytes % (auto) 40.8 %; Neutrophils # (auto) 1.73 K/uL (1.4-6.5); Neutrophils % (auto) 31.4 %; Platelet Count 203 K/uL (130-400); RDW Coefficient of Variation 14.6 % (11.5-14.5); RDW Standard Deviation 55.5 fL (36.4-46.3); Red Blood Count 3.45 M/uL (4.7-6.1); White Blood Count 5.51 K/uL (4.8-10.8)
[2019-06-04 04:26] LABS: Calcium 8.1 mg/dl (8.5-10.1); Creatinine Clr Calc Pharmacy 34.5 ml/min; Est GFR (Non-African American) 55.3; Potassium 3.8 mmol/L (3.5-5.1)
[2019-06-04] MEDS: AMANTADINE HCL 100 MG CAPSULE PO SCH (07:42)
[2019-06-04 07:57] LABS: INR 1.3 (0.9-1.1); Prothrombin Time 13.7 Seconds (9.0-12.0)
[2019-06-04 08:12] LABS: BUN Creatinine Ratio 23.6 (10-20); Calcium 8.5 mg/dl (8.5-10.1); Creatinine Clr Calc Pharmacy 35.7 ml/min; Est GFR (African American) 66.7; Est GFR (Non-African American) 57.5; Potassium 3.5 mmol/L (3.5-5.1)
[2019-06-04] MEDS ORDERED: ENOXAPARIN INJ 30 MG/0.3 ML SYR SQ SCH ×2 (09:00→13:47)
[2019-06-04 12:23] LABS: BUN Creatinine Ratio 23.4 (10-20); Creatinine Clr Calc Pharmacy 37.3 ml/min; Est GFR (African American) 70.3; Est GFR (Non-African American) 60.6; Potassium 3.8 mmol/L (3.5-5.1)
--- NOTE | 2019-06-04 13:20 | Electrocardiogram Report ---
Test Reason : Blood Pressure : / mmHG Vent. Rate : 071 BPM Atrial Rate : 071 BPM P-R Int : 138 ms QRS Dur : 076 ms QT Int : 484 ms P-R-T Axes : 073 052 077 degrees QTc Int : 525 ms Normal sinus rhythm Prolonged QT Abnormal ECG When compared with ECG of 28-SEP-2016 13:06, QT has lengthened Confirmed by Ross Graham ([id number]) on 06/04/2019 1:20:05 PM Referred By: REFERRED SELF Confirmed By:Ross Graham
[2019-06-04] MEDS ORDERED: ENOXAPARIN INJ 40 MG/0.4 ML SYR SQ SCH (14:00)
[2019-06-04] MEDS: DEXTROSE 5% 1,000 ML IV SCH (14:10)
[2019-06-04 15:50] LABS: BUN Creatinine Ratio 22.7 (10-20); Calcium 7.9 mg/dl (8.5-10.1); Creatinine Clr Calc Pharmacy 38.3 ml/min; Est GFR (African American) 72.6; Est GFR (Non-African American) 62.6; Potassium 3.5 mmol/L (3.5-5.1)
--- NOTE | 2019-06-04 17:35 | Hospitalist Progress Note ---
Date of Service June 04, 2019 Assessment & Plan (1) Acute hypernatremia: hypernatremic dehydration - almost certainly from poor PO intake. cause of poor PO intake either delirium/encephalopathy or related to parkinsons/lewy body dementia --> but since less than a month ago he was more functional hopefully with time/support/nutritional support and clearance of delirium/encephalopathy there would be a chance for improvement. (2) Dementia with Lewy bodies: noted (3) Parkinsons disease: continue amantadine (4) Delirium: metabolic encephalopathy - superimposed on dementia and parkinsons --> this time from hypernatremic dehydration; it appears that before during [facility] stay it was from infectious cause --> in between likely perpetuated by foreign environments without the ability to have family/familiarity around as it relates to COVID19 pandemic related vistitation restrictions (5) Macrocytic anemia: last B12 was normal, but was >2yrs ago - and with current nutritional status - will recheck (6) Protein calorie malnutrition: acutely likely severe given very poor PO intake -will have to try to encourage intake as he gets better hydrated, but 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 is how much he is able to take in with delirium/encephalopathy superimposed on dementia and parkinsons (7) DVT prophylaxis: lovenox (8) Discharge planning issues: PT/OT eval and treat anticipate return [facility] (d/w his current lack of functional status as it relates to her wondering if he could return to her care) Admission and Anticipated Discharge Date Admission Date: June 03, 2019 Subjective no meaningful HPI or ROS obtainable d/w speech - right now not trying to take in anything meaningful d/w - lelia - [phone] - asked how he was prior to hospitalization at [facility] - to try to glean a fairly proximal assessment of his status prior to that admission i asked how he was around [facility] - she notes that then he would be generally functional - would sit in his chair the whole day mostly but would be able to talk and was able to eat/drink. unfortunately she has not seen him since admission at [facility] due to covid19 pandemic. she also wonders since she was told at [facility] that he was denied by insurance for more therapy if he could go straight home to be with them. Review of Systems Review of Systems: Unobtainable due to cognitive status Physical Exam Physical Exam: gen laying in bed, eyes slightly open, maybe moves a little to voice, but no distress. heent nc at. breathing unlabored no accessory muscles good effort. abd soft nd. ?epigastric tenderness seems maybe to have a little tenderness although not clear. ext no cyanosis, no edema, no clubbing. does not appear to show focal neuro deficits. Results & Data Results & Data ([facility]) Vital Signs (Past 12 Hours) Vital Signs Temp Pulse Resp BP Pulse Ox 06/04/19 15:20 97.3 F L 74 18 161/98 H 94 06/04/19 07:35 98.4 F 69 18 184/92 H 95 PG Care Time/CCT Total # of Minutes Spent Total Time Spent with Patient: Total time spent is greater than 50% in coordina tion of care (as documented) at patient's floor/unit and/or counseling patient: Coding Level of Care Code 91460 Subseq Hosp Care Lvl 3 Diagnoses Acute hypernatremia E87.0 Dementia with Lewy bodies G31.83; F02.80 Parkinsons disease G20 Delirium R41.0 Macrocytic anemia D53.9 Protein calorie malnutrition E46 DVT prophylaxis Z29.9 Discharge planning issues Z02.9
[2019-06-04 19:05] LABS: Est GFR (African American) 76.8; Est GFR (Non-African American) 66.3; Potassium 3.4 mmol/L (3.5-5.1)
[2019-06-04 19:06] LABS: BUN Creatinine Ratio 23.1 (10-20); Calcium 8.1 mg/dl (8.5-10.1); Creatinine Clr Calc Pharmacy 40.1 ml/min
[2019-06-04] MEDS: DONEPEZIL HCL 10 MG TAB PO SCH (20:17)
[2019-06-04 22:27] LABS: BUN Creatinine Ratio 22.1 (10-20); Calcium 8.2 mg/dl (8.5-10.1); Creatinine Clr Calc Pharmacy 40.1 ml/min; Est GFR (African American) 76.8; Est GFR (Non-African American) 66.3; Potassium 3.7 mmol/L (3.5-5.1)
--- NOTE | 2019-06-05 00:31 | Billing Data ---
Date of Service June 05, 2019 Coding Level of Care Code 21839 Initial Inpt Care Lvl 3
[2019-06-05] MEDS: DEXTROSE 5% 1,000 ML IV SCH (02:45)
[2019-06-05 03:14] LABS: Calcium 7.9 mg/dl (8.5-10.1); Creatinine Clr Calc Pharmacy 41.3 ml/min; Est GFR (African American) 79.5; Est GFR (Non-African American) 68.6; Potassium 3.8 mmol/L (3.5-5.1)
[2019-06-05 08:42] LABS: BUN Creatinine Ratio 22.3 (10-20); Creatinine Clr Calc Pharmacy 44.8 ml/min; Est GFR (African American) 87.8; Est GFR (Non-African American) 75.7; Potassium 3.4 mmol/L (3.5-5.1)
[2019-06-05] MEDS ORDERED: POTASSIUM CHLORIDE 40 MEQ in DEXTROSE 5% 1,000 ML IV SCH (09:01)
[2019-06-05] MEDS: ENOXAPARIN INJ 40 MG/0.4 ML SYR SQ SCH (09:13)
[2019-06-05] MEDS: AMANTADINE HCL 100 MG CAPSULE PO SCH (09:18)
[2019-06-05 12:58] LABS: BUN Creatinine Ratio 20.1 (10-20); Calcium 7.8 mg/dl (8.5-10.1); Creatinine Clr Calc Pharmacy 43.4 ml/min; Est GFR (African American) 84.5; Est GFR (Non-African American) 72.9; Potassium 3.8 mmol/L (3.5-5.1)
[2019-06-05 16:35] LABS: BUN Creatinine Ratio 21.6 (10-20); Calcium 7.8 mg/dl (8.5-10.1); Creatinine Clr Calc Pharmacy 47.9 ml/min; Est GFR (African American) 93.4; Est GFR (Non-African American) 80.6; Potassium 3.8 mmol/L (3.5-5.1)
[2019-06-05] MEDS: SODIUM CHLOR 0.45% + 20MEQ KCL 20 MEQ/1,000 ML BAG IV SCH (17:16)
--- NOTE | 2019-06-05 19:44 | Hospitalist Progress Note ---
Date of Service June 05, 2019 Assessment & Plan (1) Acute hypernatremia: hypernatremic dehydration - almost certainly from poor PO intake. cause of poor PO intake either delirium/encephalopathy or related to parkinsons/lewy body dementia --> but since less than a month ago he was more functional hopefully with time/support/nutritional support and clearance of delirium/encephalopathy there would be a chance for improvement. changed to D5W yesterday and affected desired improvement rate in Na - now at about 10pts correction over last 24hrs and closing in on normal range Na - will change back to 1/2NSS; continue to follow BMP q4hr to allow for dynamic change in fluid management and avoid overcorrection hypokalemia - continue to supplement/replete main concern once corrected will be how well he can do in PO intake appears acute protein/calorie malnutrition probably severe, likely superimposed on a mild chronic degree of malnutriton - acutely likely caused by delirium/encephalopathy, chronically from dementia and parkinsons (2) Dementia with Lewy bodies: noted (3) Weakness of both lower extremities: (4) Urinary retention: (5) Orthostatic hypotension: (6) Macrocytic anemia: repeat B12 was normal (7) History of prostate cancer: (8) Hearing difficulty: (9) Parkinsons disease: continue amantadine (10) Palpitations: (11) Abdominal tenderness: unclear if real or just from scaphoid like abdomen on exam. CT reassuring, exam unchanged. since persists and does seem possibly somewhat tender -- trial of famotidine on the outside hope that improvement in epigastric discomfort (if present) might allow him to want to eat more. (12) DVT prophylaxis: lovenox (13) Discharge planning issues: anticipate return to SNF once more medically stable (14) Delirium: Admission and Anticipated Discharge Date Admission Date: June 03, 2019 Subjective still no HPI or ROS obtainable tried to call - no answer, left message no new problems from nursing Review of Systems Review of Systems: Unobtainable due to cognitive status Physical Exam Physical Exam: laying in bed, opens eyes, maybe tracks slightly more than yesterday but still not much of any meaningful response - hard to tell if he even opens to voice or is just open. heent nc at mmm breathing unlabored. abd still seems to maybe have some degree of epigastric tenderness although hard to tell. ext no cyanosis. neuro no focal deficits. Results & Data Results & Data ([facility]) Vital Signs (Past 12 Hours) Vital Signs Temp Pulse Resp BP Pulse Ox 06/05/19 15:31 98.8 F 70 18 169/85 H 93 PG Care Time/CCT Total # of Minutes Spent Total Time Spent with Patient: Total time spent is greater than 50% in coordination of care (as documented) at patient's floor/unit and/or counseling patient: Coding Level of Care Code 48279 Subseq Hosp Care Lvl 3 Diagnoses Acute hypernatremia E87.0 Dementia with Lewy bodies G31.83; F02.80 Weakness of both lower extremities R29.898 Urinary retention R33.9 Orthostatic hypotension I95.1 Macrocytic anemia D53.9 History of prostate cancer Z85.46 Hearing difficulty H91.90 Parkinsons disease G20 Palpitations R00.2 Abdominal tenderness R10.819 DVT prophylaxis Z29.9 Discharge planning issues Z02.9 Delirium R41.0
[2019-06-05] MEDS: FAMOTIDINE 20 MG TAB PO SCH (20:46)
[2019-06-05] MEDS: DONEPEZIL HCL 10 MG TAB PO SCH (20:46)
[2019-06-05 21:36] LABS: BUN Creatinine Ratio 20.2 (10-20); Calcium 7.7 mg/dl (8.5-10.1); Creatinine Clr Calc Pharmacy 46.3 ml/min; Est GFR (African American) 91.3; Est GFR (Non-African American) 78.8; Potassium 3.6 mmol/L (3.5-5.1)
[2019-06-06 01:22] LABS: BUN Creatinine Ratio 19.9 (10-20); Calcium 7.4 mg/dl (8.5-10.1); Creatinine Clr Calc Pharmacy 47.9 ml/min; Est GFR (African American) 93.4; Est GFR (Non-African American) 80.6; Potassium 3.9 mmol/L (3.5-5.1)
[2019-06-06 05:55] LABS: BUN Creatinine Ratio 20.2 (10-20); Calcium 7.5 mg/dl (8.5-10.1); Creatinine Clr Calc Pharmacy 50.1 ml/min; Est GFR (African American) 95.2; Est GFR (Non-African American) 82.1; Potassium 3.9 mmol/L (3.5-5.1)
[2019-06-06] MEDS: SODIUM CHLOR 0.45% + 20MEQ KCL 20 MEQ/1,000 ML BAG IV SCH ×2 (07:18→21:49)
[2019-06-06 09:16] LABS: BUN Creatinine Ratio 18.8 (10-20); Calcium 7.8 mg/dl (8.5-10.1); Creatinine Clr Calc Pharmacy 47.3 ml/min; Est GFR (African American) 92.9; Est GFR (Non-African American) 80.2; Potassium 4.3 mmol/L (3.5-5.1)
[2019-06-06] MEDS: ENOXAPARIN INJ 40 MG/0.4 ML SYR SQ SCH (09:27)
[2019-06-06] MEDS: AMANTADINE HCL 100 MG CAPSULE PO SCH (09:30)
[2019-06-06] MEDS: FAMOTIDINE 20 MG TAB PO SCH ×2 (09:30→22:23)
--- NOTE | 2019-06-06 17:58 | Hospitalist Progress Note ---
Date of Service June 06, 2019 Assessment & Plan (1) Acute hypernatremia: hypernatremic dehydration - almost certainly from poor PO intake. cause of poor PO intake either delirium/encephalopathy or related to parkinsons/lewy body dementia --> after getting further corroborating stories about his pre- admission status from other family members it sounds like he's had a really significant overall decline in function at least through this year- and whether his poor intake is encephalopathy, dementia/parkinsons, or both, may be irrelevant in that even if some of it were encephalopathy related he likely would not recover well enough to meaningfully clear the delirium given how poor his PO intake is (and that he wouldn't want PEG - which i would agree with). nearly normal 'lytes now - changed back to 02/06 NSS so as to not overcorrect and cause hyponatremia, continue to follow. hypokalemia - repleted. maintenance K in IVF appears acute protein/calorie malnutrition probably severe, likely superimposed on a mild chronic degree of malnutriton - acutely likely caused by delirium/encephalopathy, chronically from dementia and parkinsons (2) Dementia with Lewy bodies: noted (3) Weakness of both lower extremities: (4) Urinary retention: (5) Orthostatic hypotension: (6) Macrocytic anemia: repeat B12 was normal (7) History of prostate cancer: (8) Hearing difficulty: (9) Parkinsons disease: continue amantadine (10) Palpitations: (11) Abdominal tenderness: unclear if real or just from scaphoid like abdomen on exam. CT reassuring, exam unchanged. since persists and does seem possibly somewhat tender -- has not improved on trial of famotidine, but at the same time it's not clear that it's of any discomfort or just simply an exam finding. will continue H2 into tomorrow but if no change then will d/c (12) DVT prophylaxis: lovenox (13) Discharge planning issues: after discussions with family today - now looking most likely at home/hospice on 06/07 --> unless he shows significant positive change tomorrow (14) Delirium: metabolic encephalopathy - superimposed on dementia and parkinsons --> this time from hypernatremic dehydration; it appears that before during [place] stay it was from infectious cause --> in between likely perpetuated by foreign environments without the ability to have family/familiarity around as it relates to COVID19 pandemic related vistitation restrictions Admission and Anticipated Discharge Date Admission Date: June 03, 2019 Subjective no meaningful HPI or ROS still also still really not any meaningful attempt at PO intake extensive discussions w family - cynthia (son) -- while pt was not nearly in this status a month ago - he was apparently in quite a decline - cynthia recalls that when he saw him for their "late Josephine" earlier this year, he was in the room and sort of stared but barely spoke. other family on the line corroborate a story of pretty significant overall loss of function as it relates to the parkinsons and dementia. we discussed current situation - that we can hydrate him and "fix" the dehydration/hypernatremia, but that without meaningful PO intake he would almost certainly quickly rebound to the status he was at admission. they noted he would not want a tube. after further discussions we arrived at the conclusion that almost certainly he would go home w hospice - anticipating a probable 5/3 discharge, but that if tomorrow he showed any significant signs of improvement we would revisit plans. cynthia - [phone] Review of Systems Review of Systems: Unobtainable due to cognitive status Physical Exam Physical Exam: gen - staring, drooling, but no distress. heent nc at mmm breathing unlabored no accessory muscles good effort abd soft similar to yesterday in that he might have a mild degree of epigastric tenderness no guarding no rebound. neuro shows no asymmetry or focal deficits. skin no rashes or pallor, no icterus Results & Data Results & Data ([facility]) Vital Signs (Past 12 Hours) Vital Signs Temp Pulse Resp BP Pulse Ox 06/06/19 15:15 98.2 F 61 18 141/79 H 93 06/06/19 07:00 97.9 F 77 16 150/89 H 94 PG Care Time/CCT Total # of Minutes Spent Total Time Spent with Patient: Total time spent is greater than 50% in coordination of care (as documented) at patient's floor/unit and/or counseling patient: Coding Level of Care Code 91066 Subseq Hosp Care Lvl 3 Diagnoses Acute hypernatremia E87.0 Dementia with Lewy bodies G31.83; F02.80 Weakness of both lower extremities R29.898 Urinary retention R33.9 Orthostatic hypotension I95.1 Macrocytic anemia D53.9 History of prostate cancer Z85.46 Hearing difficulty H91.90 Parkinsons disease G20 Palpitations R00.2 Abdominal tenderness R10.819 DVT prophylaxis Z29.9 Discharge planning issues Z02.9 Delirium R41.0
[2019-06-06 18:32] LABS: BUN Creatinine Ratio 19.7 (10-20); Calcium 7.8 mg/dl (8.5-10.1); Est GFR (African American) 94.3; Est GFR (Non-African American) 81.3; Potassium 4.7 mmol/L (3.5-5.1)
[2019-06-06] MEDS: DONEPEZIL HCL 10 MG TAB PO SCH (22:23)
[2019-06-07] MEDS: ENOXAPARIN INJ 40 MG/0.4 ML SYR SQ SCH (07:48)
[2019-06-07] MEDS: AMANTADINE HCL 100 MG CAPSULE PO SCH ×2 (07:50→20:43)
[2019-06-07] MEDS: FAMOTIDINE 20 MG TAB PO SCH (07:50)
[2019-06-07 09:49] LABS: BUN Creatinine Ratio 23.2 (10-20); Calcium 7.8 mg/dl (8.5-10.1); Creatinine Clr Calc Pharmacy 54.7 ml/min; Est GFR (African American) 98.6; Est GFR (Non-African American) 85.1; Potassium 4.3 mmol/L (3.5-5.1)
[2019-06-07] MEDS: SODIUM CHLOR 0.45% + 20MEQ KCL 20 MEQ/1,000 ML BAG IV SCH (11:52)
--- NOTE | 2019-06-07 15:49 | Hospitalist Progress Note ---
Date of Service June 07, 2019 Assessment & Plan (1) Acute hypernatremia: hypernatremic dehydration - almost certainly from poor PO intake. cause of poor PO intake either delirium/encephalopathy or related to parkinsons/lewy body dementia --> after getting further corroborating stories about his pre- admission status from other family members it sounds like he's had a really significant overall decline in function at least through this year- and whether his poor intake is encephalopathy, dementia/parkinsons, or both, may be irrelevant in that even if some of it were encephalopathy related he likely would not recover well enough to meaningfully clear the delirium given how poor his PO intake is (and that he wouldn't want PEG - which i would agree with). hydrated but still not taking in enough PO in any meaningful way -- family now thinking home/hospice vs SNF hypokalemia - repleted. maintenance K in IVF appears acute protein/calorie malnutrition probably severe, likely superimposed on a mild chronic degree of malnutriton - acutely likely caused by delirium/encephalopathy, chronically from dementia and parkinsons (2) Dementia with Lewy bodies: noted (3) Weakness of both lower extremities: (4) Urinary retention: (5) Orthostatic hypotension: (6) Macrocytic anemia: repeat B12 was normal (7) History of prostate cancer: (8) Hearing difficulty: (9) Parkinsons disease: continue amantadine (10) Palpitations: (11) Abdominal tenderness: unclear if real or just from scaphoid like abdomen on exam. CT reassuring, exam unchanged. nonspecific, will stop pepcid (12) DVT prophylaxis: lovenox (13) Discharge planning issues: discussions yesterday sounded like home/hospice, now family discussing further. continue current care. (14) Delirium: metabolic encephalopathy - superimposed on dementia and parkinsons --> this time from hypernatremic dehydration; it appears that before during [place] stay it was from infectious cause --> in between likely perpetuated by foreign environments without the ability to have family/familiarity around as it relates to COVID19 pandemic related vistitation restrictions Admission and Anticipated Discharge Date Admission Date: June 03, 2019 Subjective no meaningful HPI or ROS obtainable maybe makes a little more eye contact extensive discussions w sons guy and randy - able to have zoom teleconference bringing camera in the room to allow them to see their father - he did move more and rustle more with hearing their voices but still did not really communicate/look at the screen/etc - but was more movement than i had seen all week. called mirela both before and after zoom to discuss - they will discuss plans together and start to decide home/hospice vs SNF and overall goals of care - will discuss further tomorrow Review of Systems Review of Systems: Unobtainable due to cognitive status Physical Exam Physical Exam: gen laying in bed maybe makes eye contact but otherwise no meaningful response. heent nc at mmm. breathing unlabored no accessory msucles good effort. neuro no focal deficits but also not really any command-following or trying to interact - does move mouth a little but not in a reliable/conversational fashion, as noted in subjective he does move more/respond more when he hears mirela Results & Data Results & Data ([facility]) Vital Signs (Past 12 Hours) Vital Signs Temp Pulse Resp BP Pulse Ox 06/07/19 06:36 98.2 F 78 19 164/90 H 95 PG Care Time/CCT Total # of Minutes Spent Total Time Spent with Patient: Total time spent is greater than 50% in coordination of care (as documented) at patient's floor/unit and/or counseling patient: Coding Level of Care Code 31257 Subseq Hosp Care Lvl 3 Diagnoses Acute hypernatremia E87.0 Dementia with Lewy bodies G31.83; F02.80 Weakness of both lower extremities R29.898 Urinary retention R33.9 Orthostatic hypotension I95.1 Macrocytic anemia D53.9 History of prostate cancer Z85.46 Hearing difficulty H91.90 Parkinsons disease G20 Palpitations R00.2 Abdominal tenderness R10.819 DVT prophylaxis Z29.9 Discharge planning issues Z02.9 Delirium R41.0
[2019-06-07] MEDS: DONEPEZIL HCL 10 MG TAB PO SCH (20:43)
[2019-06-08] MEDS: SODIUM CHLOR 0.45% + 20MEQ KCL 20 MEQ/1,000 ML BAG IV SCH (02:00)
[2019-06-08] MEDS: ENOXAPARIN INJ 40 MG/0.4 ML SYR SQ SCH (08:40)
[2019-06-08] MEDS: AMANTADINE HCL 100 MG CAPSULE PO SCH ×2 (10:13→21:04)
[2019-06-08 10:30] LABS: BUN Creatinine Ratio 25.6 (10-20); Calcium 7.5 mg/dl (8.5-10.1); Creatinine Clr Calc Pharmacy 63.8 ml/min; Est GFR (African American) 105.1; Est GFR (Non-African American) 90.7; Potassium 4.1 mmol/L (3.5-5.1)
[2019-06-08] MEDS ORDERED: MICONAZOLE NITRATE POWDER 43 GM EXT PRN (10:51)
[2019-06-08] MEDS: D5W AND 1/2NSS + 20MEQ KCL 20 MEQ/1,000 ML BAG IV SCH (12:41)
--- NOTE | 2019-06-08 18:53 | Hospitalist Progress Note ---
Date of Service June 08, 2019 Assessment & Plan (1) Acute hypernatremia: hypernatremic dehydration - almost certainly from poor PO intake. cause of poor PO intake either delirium/encephalopathy or related to parkinsons/lewy body dementia --> after getting further corroborating stories about his pre- admission status from other family members it sounds like he's had a really significant overall decline in function at least through this year (and in their discussions through 06/07 they're realizing with hindsight that his decline has probably really been 6-8 years overall) - and whether his poor intake is encephalopathy, dementia/parkinsons, or both, may be irrelevant in that even if some of it were encephalopathy related he likely would not recover well enough to meaningfully clear the delirium given how poor his PO intake is (and that he wouldn't want PEG - which i would agree with). hydrated but still not taking in enough PO in any meaningful way -- stable on IVF. anticipate SNF w some sort of palliative plan. f/u BMP in AM hypokalemia - repleted. maintenance K in IVF, BMP in AM appears acute protein/calorie malnutrition probably severe, likely superimposed on a mild chronic degree of malnutriton - acutely likely caused by delirium/encephalopathy, chronically from dementia and parkinsons (2) Dementia with Lewy bodies: noted (3) Weakness of both lower extremities: (4) Urinary retention: (5) Orthostatic hypotension: (6) Macrocytic anemia: repeat B12 was normal (7) History of prostate cancer: (8) Hearing difficulty: (9) Parkinsons disease: continue amantadine (10) Palpitations: (11) Abdominal tenderness: unclear if real or just from scaphoid like abdomen on exam. CT reassuring, exam unchanged. nonspecific, gave trial of empiric pepcid x2 days no change, stopped pepcid /, now better (12) DVT prophylaxis: lovenox (13) Discharge planning issues: ongoing discussions w family - palliative hopefully to assist as well - but anticipate SNF w some form of a palliative plan once family comfortable with decisions. (14) Delirium: metabolic encephalopathy - superimposed on dementia and parkinsons --> this time from hypernatremic dehydration; it appears that before during [place] stay it was from infectious cause --> in between likely perpetuated by foreign environments without the ability to have family/familiarity around as it relates to COVID19 pandemic related vistitation restrictions Admission and Anticipated Discharge Date Admission Date: June 03, 2019 Subjective no meaningful HPI or ROS - does open eyes a little more to voice and grunts a little more to voice - although still not reliably so - but maybe slightly more than yesterday called son cynthia Farrar [phone] - updated. he notes that after they were able to see their father on zoom yesterday in his current state, and after getting a chance to talk as a family and get input from mother on how difficult caring for pt has been - they've arrived at conclusion that he should return to SNF at discharge. they're still discussing hospice/palliative mode of care and anticipate that will be their conclusions but still would like time to discuss further. updated/answered to the best of my ability and offered guidance and support. Review of Systems Review of Systems: Unobtainable due to cognitive status Physical Exam Physical Exam: gen opens eyes to voice, grunts a little. nad heent nc at mmm breathing unlabored no accessory muscles good effort skin no rashes no pallor or icterus neuro no focal deficits. stomach seems nontender today - still quite scaphoid but no grimace when i push Results & Data Results & Data ([facility]) Vital Signs (Past 12 Hours) Vital Signs Temp Pulse Resp BP Pulse Ox 06/08/19 16:36 156/78 H 06/08/19 15:23 97.7 F 92 H 16 171/101 H 97 06/08/19 07:33 97.9 F 103 H 17 139/85 90 PG Care Time/CCT Total # of Minutes Spent Total Time Spent with Patient: Total time spent is greater than 50% in coordination of care (as documented) at patient's floor/unit and/or counseling patient: Coding Level of Care Code 93870 Subseq Hosp Care Lvl 3 Diagnoses Acute hypernatremia E87.0 Dementia with Lewy bodies G31.83; F02.80 Weakness of both lower extremities R29.898 Urinary retention R33.9 Orthostatic hypotension I95.1 Macrocytic anemia D53.9 History of prostate cancer Z85.46 Hearing difficulty H91.90 Parkinsons disease G20 Palpitations R00.2 Abdominal tenderness R10.819 DVT prophylaxis Z29.9 Discharge planning issues Z02.9 Delirium R41.0
[2019-06-08] MEDS: DONEPEZIL HCL 10 MG TAB PO SCH (21:05)
[2019-06-09] MEDS: D5W AND 1/2NSS + 20MEQ KCL 20 MEQ/1,000 ML BAG IV SCH ×2 (02:43→16:55)
[2019-06-09 06:43] LABS: BUN Creatinine Ratio 15.7 (10-20); Calcium 7.6 mg/dl (8.5-10.1); Creatinine Clr Calc Pharmacy 62.9 ml/min; Est GFR (African American) 104.4; Est GFR (Non-African American) 90.1; Potassium 3.9 mmol/L (3.5-5.1)
[2019-06-09] MEDS: ENOXAPARIN INJ 40 MG/0.4 ML SYR SQ SCH (08:59)
[2019-06-09] MEDS: AMANTADINE HCL 100 MG CAPSULE PO SCH ×3 (09:00→20:13)
--- NOTE | 2019-06-09 09:01 | Hospitalist Progress Note ---
Date of Service June 09, 2019 Assessment & Plan (1) Acute hypernatremia: hypernatremic dehydration - almost certainly from poor PO intake. cause of poor PO intake either delirium/encephalopathy or related to parkinsons/lewy body dementia --> after getting further corroborating stories about his pre- admission status from other family members Dr Severino feels it sounds like he's had a really significant overall decline in function at least through this year (and in their discussions through 06/07 they're realizing with hindsight that his decline has probably really been 6-8 years overall) - and whether his poor intake is encephalopathy, dementia/parkinsons, or both, may be irrelevant in that even if some of it were encephalopathy related he likely would not recover well enough to meaningfully clear the delirium given how poor his PO intake is (and that he wouldn't want PEG ). hypokalemia - repleted. appears acute protein/calorie malnutrition probably severe, likely superimposed on a mild chronic degree of malnutriton - acutely likely caused by delirium/encephalopathy, chronically from dementia and parkinsons Family has decided to pursue home with hospice care in the next few days (2) Dementia with Lewy bodies: noted (3) Weakness of both lower extremities: (4) Urinary retention: (5) Orthostatic hypotension: (6) Macrocytic anemia: repeat B12 was normal (7) History of prostate cancer: (8) Hearing difficulty: (9) Parkinsons disease: continue amantadine (10) Palpitations: (11) Abdominal tenderness: unclear if real or just from scaphoid like abdomen on exam. CT reassuring, exam non specific. (12) DVT prophylaxis: lovenox (13) Discharge planning issues: ongoing discussions w family - palliative to assist likely home with hospice 06/10/19 (14) Delirium: metabolic encephalopathy - superimposed on dementia and parkinsons --> this time from hypernatremic dehydration; it appears that before during [place] stay it was from infectious cause --> in between likely perpetuated by foreign environments without the ability to have family/familiarity around as it relates to COVID19 pandemic related vistitation restrictions Admission and Anticipated Discharge Date Admission Date: June 03, 2019 Subjective this pt is not with significant interaction, palliative care did discuss the fact about going home on hospice and at this time may go home on hospice 06/10/19 Review of Systems Review of Systems: Unobtainable due to cognitive status Physical Exam Physical Exam: The patient appeared chronically debilitated Vital signs as documented. Lungs are diminished Cardiac exam, Rhythm is regular.. No murmurs, rubs or gallops. Abdominal exam reveals normal bowel sounds, soft non tender, no masses Extremities are nonedematous and both pedal pulses are normal. Skin is without bruises or rashes Psychologically is without significant interaction Results & Data Results & Data ([facility]) Vital Signs (Past 12 Hours) Vital Signs Temp Pulse Resp BP Pulse Ox 06/09/19 07:52 97.9 F 81 20 132/93 95 06/08/19 22:12 98.2 F 87 20 150/95 H 96 PG Care Time/CCT Total # of Minutes Spent Total Time Spent with Patient: Total time spent is greater than 50% in coordination of care (as documented) at patient's floor/unit and/or counseling patient: Coding Level of Care Code 20116 Subseq Hosp Care Lvl 2 Diagnoses Acute hypernatremia E87.0 Dementia with Lewy bodies G31.83; F02.80 Weakness of both lower extremities R29.898 Urinary retention R33.9 Orthostatic hypotension I95.1 Macrocytic anemia D53.9 History of prostate cancer Z85.46 Hearing difficulty H91.90 Parkinsons disease G20 Palpitations R00.2 Abdominal tenderness R10.819 DVT prophylaxis Z29.9 Discharge planning issues Z02.9 Delirium R41.0
--- NOTE | 2019-06-09 09:05 | Palliative Care Consultation ---
Date of Consultation June 09, 2019 Assessment & Plan (1) Goals of care, counseling/discussion: -79 year old male patient with PMH Parkinsonism, severe dementia with Lewy bodies, hallucinations, electrolyte imbalances, prostate cancer, anemia, vitamin D deficiency, and others, presented to the hospital several days ago from [facility] for ongoing hypernatremia unresponsive to IVF administration. Patient apparently had been recently admitted to an outside hospital and was discharged to [facility] for rehab. Patient had hypernatremia, [facility] gave gentle IV hydration, by sodium did not correct so they sent him to the hospital for further evaluation. Work-up was essentially negative other than sodium 157, creatinine 1.5 (baseline said to be 1.3 per record), and patient is somnolent, not following commands, not eating/drinking. Despite treatment with IVF and supportive care, patient's overall condition is not improving. Per documentation, patient will open eyes to verbal stimuli, but does not verbally respond or follow commands. He is not eating or drinking. He is completely dependent for all care. In several conversations with patient's family, his dementia and condition have been worsening for years. This decline is likely due to end-stage dementia and not likely to have recovery. Palliative care is consulted to discuss goals of care with family. -Patient to be seen and evaluated by palliative MD this afternoon. -Attempted to call patient's son, Villa Ny ([phone]), who is listed as first contact. No answer. Called patient's son, Abdon Ny ([phone]), and spoke with him at length. He lives in [place] but is currently staying with his mother/patient's for the time being. He states that the family has had multiple discussions about patient's condition and goals of care. He is appreciative of Dr. Severino's updates last week and over the weekend. He states that after family has talked, the children admittedly did not realize how advanced patient's dementia was. Patient's has been caring for him for last 6 years and never indicated how much care he was requiring. Abdon states that patient's is doing fairly well and seems to have "made peace" with the situation. THere was discussion about bringing patient home on hospice, but the children are unable to assist physically with patient's care, so they've decided for patient to go back to [facility] ([facility]) for comfort care. -Goal is strictly for comfort. They are understanding of the fact that currently, IVF are the only source of hydration patient is receiving. He is not eating. Once IVF are discontinued, life expectancy is extremely limited. Family does not want to prolong patient's life in his current state. Once discharged, IVF will be discontinued. -We discussed comfort care at a SNF and the addition of hospice care. Family would like to have hospice agency in place at [facility]. I left a message for employment case manager to get [facility]'s preferred hospice agencies and provide the options to family. Call Abdon moreno ([phone]). Update [id number]: manager monitoring spoke with patient's , Mamta, and son, Abdon. Plan is now for patient to go home with hospice. Referral has been made to [facility]. Tentative plan is for discharge home tomorrow. Patient is not currently requiring any symptom management, but would recommend sending scripts for Roxanol 5mg PO/SL Q3h PRN pain or SOB and lorazepam 0.5mg SL Q4h PRN anxiety/agitation. (2) Acute hypernatremia: (3) Parkinsons disease: (4) Protein calorie malnutrition: Supervising Physician Co-Signing Physician Notes Chart reviewed, patient seen and examined. Collaborated with MARISA Reyes as well as attending physician Dr. May PE: Patient unresponsive to voice or touch HEENT: Dry mucous membranes Respirations: Unlabored CV: Regular rate, no edema Abdomen: Soft, no grimace on palpation Skin: Warm to touch Neuro: Unresponsive to voice or touch on exam today Agree with above note, assessment and plan as per MARISA Reyes-plan is for discharge home with hospice care. History of Present Illness Attending Physician: Santiago May MD History of Present Illness This 79 year old male patient with PMH Parkinsonism, severe dementia with Lewy bodies, hallucinations, electrolyte imbalances, prostate cancer, anemia, vitamin D deficiency, and others, presented to the hospital several days ago from [facility] for ongoing hypernatremia unresponsive to IVF administration. Patient apparently had been recently admitted to an outside hospital and was discharged to [facility] for rehab. Patient had hypernatremia, [facility] gave gentle IV hydration, by sodium did not correct so they sent him to the hospital for further evaluation. Work-up was essentially negative other than sodium 157, creatinine 1.5 (baseline said to be 1.3 per record), and patient is somnolent, not following commands, not eating/drinking. Despite treatment with IVF and supportive care, patient's overall condition is not improving. Per documentation, patient will open eyes to verbal stimuli, but does not verbally respond or follow commands. He is not eating or drinking. He is completely dependent for all care. In several conversations with patient's family, his dementia and condition have been worsening for years. This decline is likely due to end-stage dementia and not likely to have recovery. Palliative care is consulted to discuss goals of care with family. Thank you kindly for this consult. Palliative care team will follow as needed. Allergies Allergy/AdvReac Type Severity Reaction Status Date / Time No Known Allergies Allergy Verified 06/03/19 19:20 Home Medications Home Medications Medication Instructions Recorded Confirmed Type donepezil 10 mg tablet 10 mg PO HS 30 Days #30 tab 12/09/18 06/03/19 Rx amantadine HCl 100 mg capsule 100 mg PO BID #60 cap 05/12/19 06/03/19 Rx acetaminophen [Tylenol] 650 mg PO Q4H PRN MDD 3000 MG 06/03/19 06/03/19 History APAP/24 HOURS bisacodyl [Dulcolax (bisacodyl)] 10 mg NH DAILY PRN 06/03/19 06/03/19 History magnesium hydroxide [Milk of 30 ml PO DAILY PRN 06/03/19 06/03/19 History Magnesia] sodium phosphates [Fleet Enema] 118 ml NH DAILY PRN 06/03/19 06/03/19 History Patient History Social History Preferred Language: Latvian Communication Ability: Unable Visual Impairment: Limited Hearing Ability: Hard of Hearing Fixer Supervisor Required: No Beliefs That Will Affect Care: None marital status: Current Living Situation: Rehab current occupational status: retired Other Information That Helps Us Care for You: No Smoking Status: Former smoker Second Hand Exposure: No ; Hx Alcohol Use: Yes Alcohol Intake Frequency: Rarely Hx Substance Use: No Dental Care, Regularly: Yes Physical Activity Frequency: Does not Exercise Results & Data Vital Signs (Past 12 Hours) Vital Signs Temp Pulse Resp BP Pulse Ox 06/09/19 07:52 36.6 C 81 20 132/93 95 06/08/19 22:12 36.8 C 87 20 150/95 H 96 Coding Level of Care Code 38657 Inpt Consult Level 3 Diagnoses Goals of care, counseling/discussion Z71.89 Acute hypernatremia E87.0 Parkinsons disease G20 Protein calorie malnutrition E46 Time Spent (min) 75 Time Spent Midlevel A total of 75 minutes spent by this ITEM PROCESSOR in reviewing chart, speaking with physicians and IDT, as well as speaking with family at length regarding patient's condition, goals, and hospice.
[2019-06-09] MEDS: DONEPEZIL HCL 10 MG TAB PO SCH (20:12)
[2019-06-10] MEDS: D5W AND 1/2NSS + 20MEQ KCL 20 MEQ/1,000 ML BAG IV SCH (07:28)
[2019-06-10] MEDS: ENOXAPARIN INJ 40 MG/0.4 ML SYR SQ SCH (09:46)
[2019-06-10] MEDS: AMANTADINE HCL 100 MG CAPSULE PO SCH (09:47)
--- NOTE | 2019-06-10 18:03 | Discharge Summary ---
Date of Service June 10, 2019 Admission HPI Per Admitting Provider Patient history limited, patient nonverbal 2/2 severe dementia with Lewy body disease and does not give meaningful answers to questions. Per chart review patient is a resident of [facility] and was referred for worsening hypernatremia which did not respond to gentle IV hydration and was referred to the emergency department for further care. Evaluation in the emergency department showed hypernatremia to a sodium of 157, mildly elevated creatinine to 1.5 from a baseline of 1.3, mild hypoalbuminemia, and a CT head/chest x-ray/CT abdomen and pelvis which did not show any acute findings. CBC did not show sign of infection, no leukocytosis. On chart review from [facility] patient normally tolerates a nectar thick diet. Discussed with [facility] provider. He has only been a resident there since last week. He is nonverbal at baseline. He grabs hold on people and tracks eye movements. He was a transfer to [facility] from [facility] after being admitted for end stage Parkinsons disease. reportedly has a son Villa from [employer] [place] ([phone]), cell [phone]. Prior to admission had 1L of NSS at [facility] and has not been eating or drinking much in the preceding days. Collateral, Discussion with son Villa via phone: When he was staying at home he had decreased thirst drive for 2 years. Recently 2-3 weeks ago his oral intake decreased. He did not appear ill or have any symptoms, but had a decreased food and drink drive. No fevers, cough. He had a UTI 3 weeks ago which was treated at [facility] and which reportedly resolved by the time of discharge to [facility] for rehab. Their goals were to 'get him back on his feet so he could come home. Honestly I think his parkinsons has progressed to when I don't think he'll ever get back on his feet." His son reports that they have not discussed his case with palliative care before, but would be open to the discussion. His son would like to talk to his mother first, but thinks that discussion with palliative service may be helpful during his admission. No other questions or concerns at time of phone call. Medical History: Anemia, end-stage parkinsonism with dementia and Lewy body disease Medications: Reviewed in EMR and [facility] Records SHX: Reviewed Allergies: NKDA Social: Keesha Krause Resident. Son Villa is available at [phone] / [phone] Code Status: DNR/DNI Principal Diagnosis hypernatremia dementia parkinson's disease discharged to hospice care Discharge Exam The patient appeared comfortable Vital signs as documented. Lungs are clear to auscultation and appear unlabored Cardiac exam, Rhythm is regular.. No murmurs, rubs or gallops. Abdominal exam reveals normal bowel sounds, soft was tender to examination Discharge Data Allergies Allergy/AdvReac Type Severity Reaction Status Date / Time No Known Allergies Allergy Verified 06/03/19 19:20 Consultations 06/03/19 20:07 ED Decision to Admit Stat 06/06/19 10:15 Consult Palliative Care Routine 06/06/19 17:51 Consult Case Management - Discharge Planning Routine Ordered Studies 06/03/19 18:36 CT abd pelvis wo con Stat CT head/brain wo con Stat Hospital Course (1) Acute hypernatremia: hypernatremic dehydration - almost certainly from poor PO intake. cause of poor PO intake either delirium/encephalopathy or related to parkinsons/lewy body dementia --> after getting further corroborating stories about his pre- admission status from other family members Dr Severino feels it sounds like he's had a really significant overall decline in function at least through this year (and in their discussions through 06/07 they're realizing with hindsight that his decline has probably really been 6-8 years overall) - and whether his poor intake is encephalopathy, dementia/parkinsons, or both, may be irrelevant in that even if some of it were encephalopathy related he likely would not recover well enough to meaningfully clear the delirium given how poor his PO intake is (and that he wouldn't want PEG ). Family had discussions with palliative care team and transition to home hospice will be made on 06/10/2019 All medications at home with exception of those directed to comfort will be discontinued hypokalemia - repleted. appears acute protein/calorie malnutrition probably severe, likely superimposed on a mild chronic degree of malnutriton - acutely likely caused by delirium/encephalopathy, chronically from dementia and parkinsons (2) Dementia with Lewy bodies: noted (3) Weakness of both lower extremities: (4) Urinary retention: (5) Orthostatic hypotension: (6) Macrocytic anemia: repeat B12 was normal (7) History of prostate cancer: (8) Hearing difficulty: (9) Parkinsons disease: (10) Delirium: metabolic encephalopathy - superimposed on dementia and parkinsons --> this time from hypernatremic dehydration; it appears that before during [place] stay it was from infectious cause --> in between likely perpetuated by foreign environments without the ability to have family/familiarity around as it relates to COVID19 pandemic related vistitation restrictions Total Time Total Time Spent Total Time Spent (In Minutes): It required greater than 30 minutes to prepare this patient for discharge including review discussion with case management and prescribing initial palliative care medications Discharge Plan Discharge Items Patient Disposition: Hospice - Home Reason For Visit: HYPERNATREMIA Discharge Diagnosis: hypernatremia atypical parkisonism Activity: As commented below Activity Comment: as per home hospice Non-emergency contact: Specialist Call non-emergency contact if: you have any medication questions Follow-up/Referrals: Talisha Mcallister DO [Physician] - Diet: Regular Addtl Attending Provider Instructions: keep urinary catheter at discharge medications and instructions per home hospice care Pending Studies at Discharge: No Stand-Alone Forms: [facility] Medications and DC Order Prescriptions: New morphine 20 mg/5 mL (4 mg/mL) solution 5 mg PO Q6H PRN (Reason: pain) Qty: 100 RF: 0 lorazepam [Ativan] 0.5 mg tablet 0.5 mg PO DAILY PRN (Reason: anxiety) Qty: 30 RF: 0 Continued acetaminophen [Tylenol] 325 mg Tablet 650 mg PO Q4H MDD 3000 MG APAP/24 HOURS PRN (Reason: Fever Or Pain) RF: 0 Discontinued donepezil 10 mg tablet 10 mg PO HS 30 Days Qty: 30 RF: 5 amantadine HCl 100 mg capsule 100 mg PO BID Qty: 60 RF: 2 magnesium hydroxide [Milk of Magnesia] 400 mg/5 mL Suspension 30 ml PO DAILY PRN (Reason: Constipation) RF: 0 bisacodyl [Dulcolax (bisacodyl)] 10 mg Suppository 10 mg WI DAILY PRN (Reason: Constipation) RF: 0 Fleet Enema 19-7 gram/118 mL Enema 118 ml WI DAILY PRN (Reason: Constipation) RF: 0 Discharge Orders: Discharge Order (Routine); Ordered 06/10/19 Ordered By: Santiago May Admission Data Admit Date/Time: 06/03/19 22:17 Attending Provider: Santiago May Admit Provider: Raman Ibrahim Primary Care Provider: Eliot Alarcon Other Providers: Ady Dasilva ; Eliot Alarcon ; Damari Young Other Interventions: Discharge Summary Assessment (RN) Last Done: 06/10/19 11:13 DC Date/Time DO NOT enter until pt leaves facility: 06/10/19 14:10 Coding Level of Care Code D/C Day Management >30 mins Diagnoses Acute hypernatremia E87.0 Dementia with Lewy bodies G31.83; F02.80 Weakness of both lower extremities R29.898 Urinary retention R33.9 Orthostatic hypotension I95.1 Macrocytic anemia D53.9 History of prostate cancer Z85.46 Hearing difficulty H91.90 Parkinsons disease G20 Delirium R41.0
== END 2019-06-10 14:10 | disposition hospice, home (50) | DRG 640 ==
LOC: ED 18:26 → 2W 22:17 → SUATTDRO 22:17 → 2W 23:00